=== PATIENT | male | born 1950 | race Caucasian/White ===

== ENCOUNTER 2016-12-25 22:26 | Inpatient (IN) | payer BC ==
--- NOTE | 2016-12-25 22:39 | PDOC ---
History of Present Illness - General Chief Complaint: Wound Infection Stated Complaint: INFECTED R 3RD TOW Time Seen by Provider: 12/25/16 22:39 - History of Present Illness Initial Comments: 12/25/16 23:22 This 66-year-old man with a history of DM, HTN presents with a few week history of progressive right third toe inflammation and infection. Patient states that "about a week ago" he noted swelling and redness around the right third toenail ( states that she noted blood on patient's sock at least 2 weeks ago). No known history of trauma. No previous history of diabetic foot ulcer. Patient states that swelling/purulent discharge/redness in his foot occurred in the last 2 days. No history of fever/chills or other systemic symptoms. He denies pain in the toe although the dorsal aspect of his foot is mildly uncomfortable. Patient states that is been compliant with his medications as prescribed. He occasionally tests his fingerstick blood sugar, most recently "a few days ago". At that time, according the patient, it was not elevated. Patient states that he did not pursue treatment of the ulcer because he was waiting until after his daughter's wedding(this coming Friday, December 28) No known history of resistant organism infection or colonization PMH HTN DM Subtalar dislocation, left foot (1 year) Right-sided pneumonia/pleural effusion [address] Montes Former smoker (quit 10 years ago) Meds Metformin Amlodipine Lisinopril Past History - Past Medical History Allergies/Adverse Reactions: Allergies Allergy/AdvReac Type Severity Reaction Status Date / Time No Known Allergies Allergy Unverified 07/06/12 09:57 Home Medications: Ambulatory Orders Cholecalciferol (Vitamin D3) [Vitamin D3] 1,000 unit PO DAILY tablet 10/07/14 Vitamin B Complex 1 each PO DAILY tablet 10/07/14 Zinc 50 mg PO DAILY tablet 10/07/14 Amox-Tr/K Cl [Augmentin - 875Mg Tablet] 1 tab PO BID #6 tablet 12/27/16 Diabetes: Yes HTN: Yes - Psycho/Social/Smoking Cessation Hx Anxiety: No Suicidal Ideation: No Smoking History: Unknown if ever smoked Have you smoked in the past 12 months: No Number of Cigarettes Smoked Daily: 0 Information on smoking cessation initiated: No Hx Alcohol Use: No Drug/Substance Use Hx: No Substance Use Type: None Review of Systems - Review of Systems Able to Perform ROS?: Yes Comments:: 12 point review of systems is negative except for what is noted in the history of present illness *Physical Exam - Vital Signs Last Vital Signs Temp Pulse Resp BP Pulse Ox 98.2 F 90 14 150/66 96 12/25/16 22:30 12/25/16 22:30 12/25/16 22:30 12/25/16 22:30 12/25/16 22:30 - Physical Exam Comments: GENERAL: Adult male, alert and oriented 3, in no acute distress HEAD: Normal with no signs of trauma. EYES: PERRLA, EOMI, sclera anicteric, conjunctiva clear. ENT: Ears normal, nares patent, oropharynx clear without exudates. Dry mucous membranes. NECK: Normal range of motion, supple without lymphadenopathy, JVD, or masses. LUNGS: Breath sounds equal, clear to auscultation bilaterally. No wheezes, and no crackles. HEART:Regular rate and rhythm, normal S1 and S2 without murmur, rub or gallop. ABDOMEN:.normal bowel sounds No guarding,tenderness or rebound.No masses No distention. EXTREMITIES: R lower extremitygangrenous third toe with necrotic tip; serosanguineous material from macerated dorsal surface cultured Moderate forefoot edema; mild tenderness of dorsal forefoot(no other tenderness/fluctuance) 8 cm wedge-shaped erythematous area from base of 3rd toe to the midfoot Faint lymphangitic streaking to proximal lower leg L lower extremityhalf centimeter diameter erythematous area dorsum of the hallux, nontender, nonfluctuant Remainder of the extremity exam is normal NEUROLOGICAL: Cranial nerves II through XII grossly intact. Normal speech. Moving all 4 extremities equally MUSCULOSKELETAL: Back non-tender to palpation, no CVA tenderness Portable chest x-ray: Preliminary interpretationno acute disease Right foot x-ray: Preliminary interpretationno gross evidence of fracture/ dislocation or osteomyelitis 12-lead electrocardiogram is performed: This shows normal sinus rhythm at 87 bpm. [place], intervals are normal. No evidence of acute ST or T-wave abnormalities. ED Treatment Course - LABORATORY CBC & Chemistry Diagram: 12/26/16 07:00 12/26/16 07:00 Progress Note - Progress Note Progress Note: This 66-year-old man with a history of diabetes and hypertension presents with a few week history of progressive right third toe infection. Exam reveals gangrenous toe and soft tissue infection of the foot. There is lymphangitic streaking in the lower leg. Patient has no fever on presentation and denies constitutional symptoms. After laboratory specimens drawn, patient given 4.5 grams Zosyn IV. Laboratory evaluation notable for white blood cell count of 15,800 with predominance of neutrophils. Marked hyperglycemia as resident with random glucose of 560 (covered with 8 units regular insulin SQ ). Creatinine is mildly elevated 1.4 with a creatinine clearance calculated at 50 Medical Decision Making - Medical Decision Making 12/26/16 01:09 Case discussed with [facility] service: Patient to be admitted , Dr. Cantrell's service *DC/Admit/Observation/Transfer Diagnosis at time of Disposition: Diabetic foot ulcer Qualifiers: Diabetic foot ulcer location: toe Diabetes mellitus type: type 2 Laterality: right Non-pressure ulcer stage: with necrosis of muscle Qualified Code(s): E11.621 - Type 2 diabetes mellitus with foot ulcer - Discharge Dispostion Condition at time of disposition: Guarded Admit: Yes - Prescriptions
[2016-12-25 23:36] LABS: INR 1.13 (0.82-1.09); PROTHROMBIN TIME (PATIENT) 12.6 SEC (10.2-13.0)
[2016-12-25 23:37] LABS: WHITE BLOOD COUNT 15.8 K/mm3 (4.0-10.8)
[2016-12-25 23:38] LABS: MCH 34.8 pg (25.7-33.7); MCHC 35.8 g/dl (32.0-35.9); MEAN CELL VOLUME 97.1 fl (80-96); MEAN PLT VOLUME 7.8 fl (7.5-11.1); PLATELET COUNT 321 K/MM3 (134-434); RDW 11.8 % (11.9-15.9)
[2016-12-25 23:41] LABS: ALBUMIN 3.4 g/dl (3.5-5.0); ALK PHOS 67 U/L (32-92); ANION GAP 11 (8-16); BILIRUBIN,TOTAL 1.1 mg/dl (0.2-1.0); CALCIUM 8.8 mg/dl (8.4-10.2); CO2 29 mmol/L (22-28); CREATININE 1.4 mg/dl (0.6-1.3); SGOT/AST 31 U/L (10-42); SGPT/ALT 11 U/L (10-40); TOT PROT 6.8 g/dl (6.4-8.3)
[2016-12-25 23:46] LABS: GLUCOSE,RANDOM 560 mg/dl (74-106)
[2016-12-25] MEDS ORDERED: PIPERACILLIN/TAZOB 4.5 GM 4.5 GM in DEXTROSE 5%-WATER - 100 ML IVPB ONE (23:54)
[2016-12-25 23:55] LABS: PLATELET ESTIMATE ADEQUATE (NORMAL)
[2016-12-25] MEDS ORDERED: PIPERACILLIN/TAZOBACTAM 4.5 GM VIAL IVPB ONE (23:59)
[2016-12-26] MEDS ORDERED: INSULIN REGULAR HUMAN 100 UNITS/ML *VIAL ONE
[2016-12-26] MEDS ORDERED: INSULIN REGULAR HUMAN 100 UNITS/ML *VIAL IVPUSH ONE (00:01)
[2016-12-26] MEDS ORDERED: INSULIN REGULAR HUMAN 100 UNITS/ML *VIAL SQ ONE (00:10)
[2016-12-26] MEDS ORDERED: SODIUM CHLORIDE 1,000 ML IV SCH ×2 (01:00→05:00)
[2016-12-26] MEDS ORDERED: SODIUM CHLORIDE 1,000 ML IV STA (01:10)
[2016-12-26 02:07] VITALS: BMI 23.5
[2016-12-26] MEDS ORDERED: INSULIN (NOVOLOG) ASPART 100 UNITS/ML 10ML VIAL SQ ONE (02:43)
[2016-12-26] MEDS ORDERED: INSULIN (NOVOLOG) ASPART 100 UNITS/ML 10ML VIAL ONE ×2 (02:48→06:05)
[2016-12-26] MEDS ORDERED: HEPARIN NA (PORCINE) 5,000 UNITS/ML 1ML VIAL SQ SCH (06:00)
[2016-12-26] MEDS: INSULIN SLIDING SCALE (NOVOLOG) 1 VIAL SQ SCH ×4 (06:33→21:57)
[2016-12-26 07:31] LABS: BASOPHIL 0.7 % (0-2.0); EOSINOPHIL 0.8 % (0-4.5); MCH 34.5 pg (25.7-33.7); MCHC 35.2 g/dl (32.0-35.9); MEAN CELL VOLUME 98.1 fl (80-96); MEAN PLT VOLUME 7.6 fl (7.5-11.1); NEUTROPHILS 77.8 % (42.8-82.8); PLATELET COUNT 299 K/MM3 (134-434); RDW 11.7 % (11.9-15.9); WHITE BLOOD COUNT 13.1 K/mm3 (4.0-10.8)
[2016-12-26 08:02] LABS: ANION GAP 6 (8-16); CALCIUM 8.2 mg/dl (8.4-10.2); CO2 29 mmol/L (22-28); CREATININE 0.9 mg/dl (0.6-1.3); GLUCOSE,RANDOM 122 mg/dl (74-106); MAGNESIUM 1.7 mg/dL (1.8-2.4); PHOSPHOROUS 2.7 mg/dl (2.5-4.6)
[2016-12-26] MEDS ORDERED: MAGNESIUM SULFATE 2 GM in SODIUM CHLORIDE 100 ML IVPB ONE (09:10)
--- NOTE | 2016-12-26 09:12 | HP ---
CHIEF COMPLAINT: right 3rd toe infection PCP: Dr Montes HISTORY OF PRESENT ILLNESS: patient is a 66 y/o male with a past medical history of hypertension and NIDDM. Patient reports foul order and swelling to the right 3rd toe for the past week. He denies any prior injury. Patient denies any fever. Patient does report compliance with all of his medications. ER course was notable for: (1) xray of right foot soft tissue swelling and air consistent with infection, linear density, 3mm overlying the posterior plantar surface, questionable foreign body (2) wbc 13.1 (3) esr 70 crp 15 Recent Travel: none PAST MEDICAL HISTORY: niddm, htn PAST SURGICAL HISTORY: tonsilectomy Social History: retired lives with Smoking: none Alcohol:social Drugs: none Family History: non contributory to this admission Allergies No Known Allergies Allergy (Unverified 07/06/12 09:57) HOME MEDICATIONS: Home Medications Medication Instructions Recorded Cholecalciferol (Vitamin D3) 1,000 unit PO DAILY tablet 10/07/14 [Vitamin D3] Vitamin B Complex 1 each PO DAILY tablet 10/07/14 Zinc 50 mg PO DAILY tablet 10/07/14 REVIEW OF SYSTEMS CONSTITUTIONAL: Absent: fever, chills, diaphoresis, generalized weakness, malaise, loss of appetite, weight change HEENT: Absent: rhinorrhea, nasal congestion, throat pain, throat swelling, difficulty swallowing, mouth swelling, ear pain, eye pain, visual changes CARDIOVASCULAR: Absent: chest pain, syncope, palpitations, irregular heart rate, lightheadedness , peripheral edema RESPIRATORY: Absent: cough, shortness of breath, dyspnea with exertion, orthopnea, wheezing, stridor, hemoptysis GASTROINTESTINAL: Absent: abdominal pain, abdominal distension, nausea, vomiting, diarrhea, constipation, melena, hematochezia GENITOURINARY: Absent: dysuria, frequency, urgency, hesitancy, hematuria, flank pain, genital pain MUSCULOSKELETAL: Present: toe swelling and discharge Absent: myalgia, arthralgia, joint swelling, back pain, neck pain SKIN: Absent: rash, itching, pallor HEMATOLOGIC/IMMUNOLOGIC: Absent: easy bleeding, easy bruising, lymphadenopathy, frequent infections ENDOCRINE: Absent: unexplained weight gain, unexplained weight loss, heat intolerance, cold intolerance NEUROLOGIC: Absent: headache, focal weakness or paresthesias, dizziness, unsteady gait, seizure, mental status changes, bladder or bowel incontinence PSYCHIATRIC: Absent: anxiety, depression, suicidal or homicidal ideation, hallucinations. PHYSICAL EXAMINATION Vital Signs - 24 hr 12/26/16 12/26/16 06:38 06:44 Temperature 98.5 F Pulse Rate 86 Respiratory 19 Rate Blood Pressure 130/61 O2 Sat by Pulse 96 Oximetry (%) GENERAL: Awake, alert, and fully oriented, in no acute distress. HEAD: Normal with no signs of trauma. EYES: Pupils equal, round and reactive to light, extraocular movements intact, sclera anicteric, conjunctiva clear. No lid lag. EARS, NOSE, THROAT: Ears normal, nares patent, oropharynx clear without exudates. Moist mucous membranes. NECK: Normal range of motion, supple without lymphadenopathy, JVD, or masses. LUNGS: Breath sounds equal, clear to auscultation bilaterally. No wheezes, and no crackles. No accessory muscle use. HEART: Regular rate and rhythm, normal S1 and S2 without murmur, rub or gallop. ABDOMEN: Soft, nontender, not distended, normoactive bowel sounds, no guarding, no rebound, no masses. No hepatomegaly or splenomegaly. MUSCULOSKELETAL: Normal range of motion at all joints. No bony deformities or tenderness. No CVA tenderness. UPPER EXTREMITIES: 2+ pulses, warm, well-perfused. No cyanosis. No clubbing. No peripheral edema. LOWER EXTREMITIES: 2+ pulses, warm, well-perfused. No calf tenderness. No peripheral edema. RIGHT LOWER EXTREMITY: gangrenous 3rd toe, necrotic tip, purulent foul smelling drainage, macerateted tissue of dorsal surface of toe, +2 foot edema, with 8 cm of erythema and lymphangitis. NEUROLOGICAL: Cranial nerves II-XII intact. Normal speech. Normal gait. PSYCHIATRIC: Cooperative. Good eye contact. Appropriate mood and affect. SKIN: Warm, dry, normal turgor, no rashes or lesions noted, normal capillary refill. Laboratory Results - last 24 hr 12/26/16 12/26/16 12/26/16 02:17 06:18 07:00 WBC 13.1 H RBC 4.13 Hgb 14.3 Hct 40.5 MCV 98.1 H MCH 34.5 H MCHC 35.2 RDW 11.7 L Plt Count 299 MPV 7.6 Neutrophils % 77.8 D Lymphocytes % 12.7 D Monocytes % 8.0 Eosinophils % 0.8 Basophils % 0.7 Sodium Potassium Chloride Carbon Dioxide Anion Gap BUN Creatinine POC Glucometer 330 111 Random Glucose Calcium Phosphorus Magnesium 12/26/16 07:00 WBC RBC Hgb Hct MCV MCH MCHC RDW Plt Count MPV Neutrophils % Lymphocytes % Monocytes % Eosinophils % Basophils % Sodium 131 L Potassium 3.1 L D Chloride 96 L D Carbon Dioxide 29 H Anion Gap 6 L BUN 14 Creatinine 0.9 D POC Glucometer Random Glucose 122 H D Calcium 8.2 L Phosphorus 2.7 Magnesium 1.7 L ASSESSMENT/PLAN: F/E/N - npo - replete mg and k - repeat bmp at 1800 ppx - hold Problem List - Problem (1) Gangrenous toe Assessment/Plan: - stat MRI ordered - upgrade antibiotics to vanc juan zosyn, appreciate ID input for abx clearence - case discussed with Dr Olvera for emergent surgical intervention, pt is pending OR today Code(s): I96 - GANGRENE, NOT ELSEWHERE CLASSIFIED (2) Diabetes Assessment/Plan: - pending hgb a1c - fingersticks achs, sliding scale regular insulin scale Code(s): E11.9 - TYPE 2 DIABETES MELLITUS WITHOUT COMPLICATIONS (3) Hypertension Assessment/Plan: - b/p at goal, continue norvasc Code(s): I10 - ESSENTIAL (PRIMARY) HYPERTENSION Visit type - Emergency Visit Emergency Visit: Yes ED Registration Date: 12/26/16 Care time: The patient presented to the Emergency Department on the above date and was hospitalized for further evaluation of their emergent condition. - New Patient This patient is new to me today: Yes Date on this admission: 12/26/16 - Critical Care Critical Care patient: No
[2016-12-26] MEDS ORDERED: PT OWN MED DRAWER 7, Y5N ONE (09:20)
[2016-12-26] MEDS: VITAMIN B COMPLEX W/C COMBO TABLET (FP) PO SCH (09:27)
[2016-12-26] MEDS: CHOLECALCIFEROL (VITAMIN D3) 1,000 UNIT TABLET (FP) PO SCH (09:27)
[2016-12-26] MEDS: amLODIPine BESYLATE 10 MG TABLET (FP) PO SCH (09:27)
[2016-12-26] MEDS: ZINC SULFATE 220 MG CAPSULE (FP) PO SCH (09:27)
[2016-12-26] MEDS ORDERED: POTASSIUM CHLORIDE TABS 20 MEQ TABLET.ER (FP) PO ONE (09:30)
[2016-12-26] MEDS: SODIUM CHLORIDE 0.9%/KCL 1,000 ML IV SCH (09:36)
[2016-12-26] MEDS ORDERED: MAGNESIUM SULF 50% (8.12 MEQ/2 ML-1 GM VIAL) IVPB ONE (09:45)
[2016-12-26] MEDS: PIPERACILLIN/TAZOB 3.375 GM 50 ML IVPB SCH ×2 (11:07→17:37)
[2016-12-26] MEDS ORDERED: VANCOMYCIN 1 GRAM (PRE-DOCKED) 250 ML IVPB ONE (11:30)
--- NOTE | 2016-12-26 13:07 | EKG ---
Test Reason : Blood Pressure : / mmHG Vent. Rate : 087 BPM Atrial Rate : 087 BPM P-R Int : 154 ms QRS Dur : 114 ms QT Int : 382 ms P-R-T Axes : 044 032 067 degrees QTc Int : 459 ms SINUS RHYTHM NON-SPECIFIC INTRA-VENTRICULAR CONDUCTION DELAY POSSIBLE ANTEROSEPTAL INFARCT , AGE UNDETERMINED NONSPECIFIC T WAVE ABNORMALITY ABNORMAL ECG NO PREVIOUS ECGS AVAILABLE Confirmed by JAIMEE CASTAÑEDA MD ([id number]) on 12/26/2016 1:07:32 PM Referred By: MD LANE Confirmed By:JAIMEE CASTAÑEDA MD
[2016-12-26] MEDS ORDERED: BUPIVACAINE HCL/PF 0.5% (5MG/ML) 10 ML VIAL ONE (16:55)
[2016-12-26] MEDS ORDERED: LIDOCAINE HCL 1%, 10 MG/ML (20ML VIAL) ONE (16:55)
[2016-12-26] MEDS ORDERED: DEXTROSE 5%-WATER - 50 ML IVPB ONE ×2 (17:22→22:03)
[2016-12-26] MEDS ORDERED: PIPERACILLIN/TAZOBACTAM 3.375 GM VIAL IVPB ONE ×2 (17:22→22:03)
[2016-12-26] MEDS: PIPERACILLIN/TAZOB 3.375 GM 3.375 GM in DEXTROSE 5%-WATER - 50 ML IVPB SCH (17:39)
--- NOTE | 2016-12-26 19:16 | CONSULT ---
Consult - text type - Consultation Consultation Note: Podiatry Consultation: 66 year old NIDDM M presents for admission for R 3rd toe ulcer and cellulitis. Patient reports developing infection for past 3 weeks duration that began as a hard callus. He developed increased malodor to the toe with associated redness/ swelling. Patient states that his blood sugars have been elevated over the past several days. He denies F/V/N/C/SOB/CP at home. He is currently afebrile with vital signs stable. A confounding issue I have learned after discussing with patient and his family members is that he plans to leave against medical advice on Friday to attend his daughter's wedding. PMHx: NIDDM, HLP, HTN Meds: noted in chart ALL: NKMA EDUARDO: R foot: pedal pulses 1/4, TG warm-warmer, CFT absent to 3rd toe. There is wet gangrene of the third toe with extensive malodor, purulent drainage, ascending cellulitis to the dorsal midfoot. There is faint ascending lymphangitis. There is no soft tissue crepitus evident. There is minimal tenderness to palpation. There is fluctuance throughout the entire toe. There is lifting of the nail unit with necrotic changes to the distal tuft of the toe. WBC: 13.1 ESR: 70 Blood Cx: pending Wound Cx: pending R foot XR: ST air 3rd digit, ST swelling R foot MRI: report pending Imp: 66 year old DM M with R 3rd toe wet gangrene and cellulitis I had a thorough discussion with the patient and his family members at bedside regarding his condition. I have strongly recommended the patient stay in the hospital through the weekend for intra-venous antibiotics, post-operative recovery and to assess bone cultures and pathology. The patient is adamant about leaving against medical advice in spite of my discussion to attend his daughter's wedding. I discussed risks of leaving against medical advice including worsening infection, spreading of infection to other parts of the foot , sepsis, loss of limb and even loss of life. I discussed risks of leaving against medical advice post-operatively which includes developing post- operative site infection, developing worsening infection and again loss of limb/ life. Clearly the most appropriate course of treatment is staying in the hospital during the course of admission. He plans to leave Friday. I recommend continuing intravenous antibiotics (?vanco/clinda) and Infectious Disease consultation. Hopefully, with intravenous antibiotics over the next 24 hours his condition improves. He plans to return to the emergency room on Friday to be readmitted and I will perform the amputation once the patient returns to the hospital. I advised patient and his family members to monitor closely for worsening signs/symptoms of infection. Thank you for the courtesy of this consultation. Anne-Marie Olvera DPM
[2016-12-27] MEDS: PIPERACILLIN/TAZOB 3.375 GM 3.375 GM in DEXTROSE 5%-WATER - 50 ML IVPB SCH ×3 (01:30→17:58)
[2016-12-27] MEDS: INSULIN SLIDING SCALE (NOVOLOG) 1 VIAL SQ SCH ×4 (06:04→22:07)
[2016-12-27] MEDS: SODIUM CHLORIDE 0.9%/KCL 1,000 ML IV SCH (09:45)
[2016-12-27] MEDS ORDERED: DEXTROSE 5%-WATER - 50 ML IVPB ONE ×2 (09:49→17:16)
[2016-12-27] MEDS ORDERED: PIPERACILLIN/TAZOBACTAM 3.375 GM VIAL IVPB ONE ×2 (09:49→17:15)
[2016-12-27] MEDS: ZINC SULFATE 220 MG CAPSULE (FP) PO SCH (10:08)
[2016-12-27] MEDS: amLODIPine BESYLATE 10 MG TABLET (FP) PO SCH (10:08)
[2016-12-27] MEDS: CHOLECALCIFEROL (VITAMIN D3) 1,000 UNIT TABLET (FP) PO SCH (10:08)
--- NOTE | 2016-12-27 10:39 | PN ---
Progress Note (short form) - Note Progress Note: ID Consult dictated Gangrene R 3rd toe Cellulitis R foot Possible sepsis secondary to foot infection Leukocytosis Uncontrolled DM Pending c/s empiric zosyn/ vancomycin Amputation
[2016-12-27] MEDS: VANCOMYCIN 1 GRAM (PRE-DOCKED) 250 ML IVPB SCH ×2 (11:05→22:11)
--- NOTE | 2016-12-27 11:21 | CONS ---
INFECTIOUS DISEASE CONSULTATION DATE OF CONSULTATION: DATE OF DICTATION: 12/27/2016 HISTORY OF PRESENT ILLNESS: The patient is a 66-year-old diabetic male who was evaluated for gangrenous right third toe. Patient states that he had developed an ingrown toenail and a hard callus on his right third toe. He was unaware that it had become increasingly swollen, erythematous, and with malodorous drainage. His noted over the past 2-3 days of increasing malodorous drainage from the toe. He presented for evaluation and was found to have wet gangrene of the right third toe. He was seen in consultation by Podiatry and was advised an amputation of that toe. He has no complaints of pain at the present time. He denies any associated fever or chills. His course was complicated by uncontrolled diabetes mellitus. He has had no recent hospital admissions. He denies history of serious soft tissue infection requiring hospitalization. PAST MEDICAL HISTORY: Positive for diabetes mellitus, hypertension. ALLERGIES: No known allergies. MEDICATIONS: Include Norvasc, NovoLog, multivitamins. SOCIAL HISTORY: He resides at home with his . He is a former smoker. SYSTEMS REVIEW: Neurologic: No loss of consciousness, seizure activity, focal weakness. Cardiac: Negative chest pain and palpitations. Respiratory: Negative cough or sputum production. Gastrointestinal: Negative vomiting or diarrhea. Genitourinary: Negative for urinary tract infection. LABORATORY DATA: White count 13.1, hematocrit 40.5, platelet count 299. BUN 14, creatinine 0.9. Sedimentation rate 70. C-reactive protein 15. Blood and wound cultures are pending. MRI of the foot shows osteomyelitis of the distal phalanx of the third digit. PHYSICAL EXAMINATION: General: He is awake and alert. He is not acutely toxic appearing. Vital Signs: Temperature 96.4; blood pressure 143/79; pulse 82, regular; respirations 20 per minute. HEENT: Sclerae are anicteric. Heart: Sounds S1, S2. Lungs: Clear. Abdomen: Soft. No tenderness elicited. No mass, rebound, or rigidity. Extremities: Negative for edema. Right Foot: There is wet gangrene involving the right third toe. The toe is swollen and necrotic with malodorous drainage. There is erythema extending to the dorsum of the right foot at the base of the toe. No lymphangitis. IMPRESSION: 1. Gangrene of the right third toe. 2. Cellulitis, right foot. 3. Possible sepsis secondary to foot infection. 4. Leukocytosis. 5. Uncontrolled diabetes mellitus. Pending cultures, empiric antibiotic coverage with Zosyn and vancomycin. Needs amputation of the right third toe. We will follow. Thank you for the kind referral. XIOMARA REYNAGA M.D. [id number]
--- NOTE | 2016-12-27 11:47 | PN ---
Progress Note (short form) - Note Progress Note: Subjective: The patient was seen and examined at the bedside, he has no complaints at this time. He states he will be leaving [facility] tomorrow. Current Medications Generic Name Dose Route Start Last Admin Trade Name Sandoval PRN Reason Stop Dose Admin Amlodipine Besylate 10 mg 12/26/16 10:00 12/27/16 10:08 Norvasc - PO 10 mg DAILY CAITLYN Administration Cholecalciferol 1,000 unit 12/26/16 10:00 12/27/16 10:08 Vitamin D3 - PO 1,000 unit DAILY CAITLYN Administration Potassium Chloride/Sodium Chloride 1,000 mls @ 75 mls/hr 12/26/16 09:30 09:45 Ns+20 Meq Kcl - IV Not Given ASDIR CAITLYN Piperacillin Sod/Tazobactam 50 mls @ 100 mls/hr 12/26/16 18:00 12/27/16 10:08 Sod 3.375 gm/ Dextrose IVPB 100 mls/hr Q8H-IV CAITLYN Administration Protocol Vancomycin HCl 250 mls @ 166.667 mls/hr 12/27/16 10:45 12/27/16 11:05 Vancomycin (Pre-Docked) IVPB 166.667 mls/hr Q12H CAITLYN Administration Insulin Aspart 1 vial 12/26/16 07:00 12/27/16 11:50 Novolog Vial Sliding Scale - SQ 4 units ACHS CAITLYN Administration Protocol Multivitamins 1 each 12/26/16 10:00 12/27/16 11:50 Total B With C - PO 1 each DAILY CAITLYN Administration Zinc Sulfate 220 mg 12/26/16 10:00 12/27/16 10:08 Orazinc - PO 220 mg DAILY CAITLYN Administration Objective: Vital Signs Period Temp Pulse Resp BP Sys/Anderson Pulse Ox Last 24 Hr 98.2 F-99.3 F 82-91 19-20 136-145/70-79 95-95 Physical Exam: General: NAD, A&Ox3 Lungs: CTA bilaterally Heart: RRR, S1S2 Abd: Soft, non-tender Ext: Right foot with dressing, c/d/i. 2+ DP/PT bilaterally Neuro: CN 2-12 intact CBCD WBC 13.1 K/mm3 (4.0-10.8) H 12/26/16 07:00 RBC 4.13 M/mm3 (4.00-5.60) 12/26/16 07:00 Hgb 14.3 GM/dl (11.7-16.9) 12/26/16 07:00 Hct 40.5 % (35.4-49) 12/26/16 07:00 MCV 98.1 fl (80-96) H 12/26/16 07:00 MCHC 35.2 g/dl (32.0-35.9) 12/26/16 07:00 RDW 11.7 % (11.9-15.9) L 12/26/16 07:00 Plt Count 299 K/MM3 (134-434) 12/26/16 07:00 MPV 7.6 fl (7.5-11.1) 12/26/16 07:00 CMP Sodium 131 mmol/L (136-145) L 12/26/16 07:00 Potassium 3.1 mmol/L (3.5-5.1) L D 12/26/16 07:00 Chloride 96 mmol/L (98-107) L D 12/26/16 07:00 Carbon Dioxide 29 mmol/L (22-28) H 12/26/16 07:00 Anion Gap 6 (8-16) L 12/26/16 07:00 BUN 14 mg/dl (7-18) 12/26/16 07:00 Creatinine 0.9 mg/dl (0.6-1.3) D 12/26/16 07:00 Creat Clearance w eGFR 50.86 (>60) 12/25/16 23:20 Random Glucose 122 mg/dl (74-106) H D 12/26/16 07:00 Calcium 8.2 mg/dl (8.4-10.2) L 12/26/16 07:00 Total Bilirubin 1.1 mg/dl (0.2-1.0) H D 12/25/16 23:20 AST 31 U/L (10-42) D 12/25/16 23:20 ALT 11 U/L (10-40) D 12/25/16 23:20 Alkaline Phosphatase 67 U/L (32-92) 12/25/16 23:20 Total Protein 6.8 g/dl (6.4-8.3) 12/25/16 23:20 Albumin 3.4 g/dl (3.5-5.0) L 12/25/16 23:20 Microbiology 12/25/16 23:20 Toe - Right Third Gram Stain - Final 12/25/16 23:20 Toe - Right Third Wound Culture - Preliminary Presumptive Mssa (Pbp2a Neg) Strep Agalactiae Group B Pending Organism Pending Organism#2 12/25/16 23:30 Blood - Peripheral Venous Blood Culture - Preliminary NO GROWTH OBTAINED AFTER 24 HOURS, INCUBATION TO CONTINUE FOR 4 DAYS. 12/25/16 23:30 Blood - Peripheral Venous Blood Culture - Preliminary NO GROWTH OBTAINED AFTER 24 HOURS, INCUBATION TO CONTINUE FOR 4 DAYS. Assessment: This is a 66 year old male with PMHx of NIDDM, HTN, who presented to the ED with right foot swelling and drainage/foul odor from right foot 3rd digit. Plan: 1) ID: Right foot cellulitis, right foot 3rd digit gangrene and osteomyelitis - Continue IV Vancomycin and Zosyn - Patient is leaving [facility] tomorrow for his daughter's wedding. Discussed with Dr. Paz, will give Augmentin x2 days. The patient states he will return to the hospital on Friday afternoon for treatment - Appreciate podiatry consult - Appreciate ID consult 2) Endocrine: NIDDM - BGM ACHS - ISS ACHS 3) Cardiology: HTN - Continue Norvasc 4) F/E/N: - Diabetic diet/sodium controlled - Monitor electrolytes 5) Prophylaxis: - Heparin 5,000u sq tid - OOB ambulating 6) Dispo: - Requires continued inpatient care CODE STATUS: FULL CODE Visit type - Emergency Visit Emergency Visit: Yes ED Registration Date: 12/26/16 Care time: The patient presented to the Emergency Department on the above date and was hospitalized for further evaluation of their emergent condition. - New Patient This patient is new to me today: Yes Date on this admission: 12/27/16 - Critical Care Critical Care patient: No
[2016-12-27] MEDS: VITAMIN B COMPLEX W/C COMBO TABLET (FP) PO SCH (11:50)
[2016-12-27] MEDS: HEPARIN NA (PORCINE) 5,000 UNITS/ML 1ML VIAL SQ SCH ×2 (15:03→22:11)
[2016-12-28] MEDS ORDERED: DEXTROSE 5%-WATER - 50 ML IVPB ONE ×2 (02:46→08:33)
[2016-12-28] MEDS ORDERED: PIPERACILLIN/TAZOBACTAM 3.375 GM VIAL IVPB ONE ×2 (02:46→08:33)
[2016-12-28] MEDS: PIPERACILLIN/TAZOB 3.375 GM 3.375 GM in DEXTROSE 5%-WATER - 50 ML IVPB SCH ×2 (02:55→09:45)
[2016-12-28] MEDS: INSULIN SLIDING SCALE (NOVOLOG) 1 VIAL SQ SCH (06:17)
[2016-12-28] MEDS: HEPARIN NA (PORCINE) 5,000 UNITS/ML 1ML VIAL SQ SCH (06:18)
[2016-12-28 07:41] LABS: BASOPHIL 0.8 % (0-2.0); EOSINOPHIL 2.7 % (0-4.5); MCH 34.1 pg (25.7-33.7); MCHC 34.3 g/dl (32.0-35.9); MEAN CELL VOLUME 99.1 fl (80-96); MEAN PLT VOLUME 7.8 fl (7.5-11.1); NEUTROPHILS 69.2 % (42.8-82.8); PLATELET COUNT 338 K/MM3 (134-434); RDW 12.4 % (11.9-15.9); WHITE BLOOD COUNT 8.9 K/mm3 (4.0-10.0)
[2016-12-28 07:57] LABS: ALBUMIN 3.1 g/dl (3.4-5.0); ANION GAP 15 (8-16); CALCIUM 9.1 mg/dL (8.5-10.1); CO2 25 mmol/L (21-32); CREATININE 0.8 mg/dL (0.7-1.3); GLUCOSE,RANDOM 254 mg/dL (74-106); SGOT/AST 11 U/L (15-37)
[2016-12-28 07:58] LABS: ALK PHOS 63 U/L (45-117); BILIRUBIN,TOTAL 0.7 mg/dL (0.2-1.0); SGPT/ALT 12 U/L (12-78); TOT PROT 6.8 g/dl (6.4-8.2)
--- NOTE | 2016-12-28 08:08 | DS ---
Physical Examination Vital Signs: Vital Signs Temperature 97.8 F 12/28/16 07:14 Pulse Rate 84 12/28/16 07:14 Respiratory Rate 20 12/28/16 07:14 Blood Pressure 162/64 12/28/16 07:14 O2 Sat by Pulse Oximetry (%) 95 12/27/16 21:00 Labs: CBC, BMP 12/28/16 06:30 Discharge Summary Reason For Visit: DIABETIC FOOT ULCER Current Active Problems Diabetes (Acute) Diabetic foot ulcer (Acute) Gangrenous toe (Acute) Hypertension (Acute) Hospital Course: AMA Condition: Guarded - Instructions Referrals: Jorge L Montes MD [Primary Care Provider] - Disposition: AGAINST MEDICAL ADVICE - Home Medications Comprehensive Discharge Medication List: Ambulatory Orders Cholecalciferol (Vitamin D3) [Vitamin D3] 1,000 unit PO DAILY tablet 10/07/14 Vitamin B Complex 1 each PO DAILY tablet 10/07/14 Zinc 50 mg PO DAILY tablet 10/07/14 Amox-Tr/K Cl [Augmentin - 875Mg Tablet] 1 tab PO BID #6 tablet 12/27/16
[2016-12-28] MEDS ORDERED: PT OWN MED DRAWER 7, Y5N ONE (08:33)
[2016-12-28] MEDS: VANCOMYCIN 1 GRAM (PRE-DOCKED) 250 ML IVPB SCH ×2 (08:36→10:05)
[2016-12-28] MEDS: ZINC SULFATE 220 MG CAPSULE (FP) PO SCH (09:27)
[2016-12-28] MEDS: VITAMIN B COMPLEX W/C COMBO TABLET (FP) PO SCH (09:28)
[2016-12-28] MEDS: amLODIPine BESYLATE 10 MG TABLET (FP) PO SCH (09:28)
[2016-12-28] MEDS: CHOLECALCIFEROL (VITAMIN D3) 1,000 UNIT TABLET (FP) PO SCH (09:28)
[2016-12-28 09:33] VITALS: BP 147/81; PULSE 81; TEMP 98
== END 2016-12-28 10:41 | disposition left against medical advice (07) | DRG 638 ==
LOC: FER 22:26 → FM/S 12-26 00:49 → J8W 12-26 15:55
PROVIDERS: ADMIT Internal Medicine; ATTEND Registered Nurse
DX: E11.69 Type 2 diabetes mellitus with other specified complication (principal); M86.8X7 Other osteomyelitis, ankle and foot; E11.52 Type 2 diabetes mellitus with diabetic peripheral angiopathy with gangrene; E11.65 Type 2 diabetes mellitus with hyperglycemia; I10 Essential (primary) hypertension; L97.519 Non-pressure chronic ulcer of other part of right foot with unspecified severity; E11.621 Type 2 diabetes mellitus with foot ulcer; E11.628 Type 2 diabetes mellitus with other skin complications; L03.031 Cellulitis of right toe; D72.828 Other elevated white blood cell count; Z79.84 Long term (current) use of oral hypoglycemic drugs
CPT/HCPCS: 36415; 71010-TC; 73630-TC-RT; 73718-TC; 80048; 80053; 83036; 83605; 83735; 84100; 84443; 85025; 85610; 85651; 86140; 87040; 87070; 87186; 87205; 93005; 99283-25; J1644

== ENCOUNTER 2016-12-29 17:45 | Inpatient (IN) | payer BC ==
[2016-12-29] MEDS ORDERED: PIPERACILLIN/TAZOB 3.375 GM/50 ML PRE-DOCKED IV ONE (18:25)
--- NOTE | 2016-12-29 18:29 | PDOC ---
History of Present Illness <Alberto Medellin - Last Filed: 12/29/16 18:33> - General History Source: Patient Exam Limitations: No Limitations - History of Present Illness Initial Comments: 12/29/16 18:47 Patient is a 66 year old male with a significant past medical history of Diabetes, hypertension and NIDDM who presents to the ED s/p Gangrenous 3rd toe on right foot last week. Patient reports getting a cut on his 3rd toe last week which became infection. He reports his 3rd toe became red, followed by bloody and pus filled. He reports his toe becoming gangrenous after about 9 days prior to getting the initial cut on toe. Physician notes states patient signed himself out to dance at his daughter's wedding. Patient states he is signing himself in to have his 3rd toe amputated. Denies fever, chills. Denies chest pain, SOB. Denies nausea, vomiting. Denies any other symptoms Allergies: None Social history: No smoking. No alcohol. No drugs. Surgical history: tonsillectomy PMD: Dr. Montes Other providers: Dr. Ernesto Paz. Dr. Bethel Olvera <Timo Espinoza - Last Filed: 12/29/16 18:48> - General Chief Complaint: Wound Stated Complaint: admission Time Seen by Provider: 12/29/16 17:58 Past History - Past Medical History Anemia: No Asthma: No Cancer: No Cardiac Disorders: No CVA: No COPD: No CHF: No Dementia: No Diabetes: Yes GI Disorders: No Disorders: No HTN: Yes Hypercholesterolemia: No Liver Disease: No Seizures: No Thyroid Disease: No - Psycho/Social/Smoking Cessation Hx Anxiety: No Suicidal Ideation: No Smoking History: Former smoker Have you smoked in the past 12 months: No Number of Cigarettes Smoked Daily: 0 Information on smoking cessation initiated: No Hx Alcohol Use: No Drug/Substance Use Hx: No Substance Use Type: None Hx Substance Use Treatment: No <Alberto Medellin - Last Filed: 12/29/16 18:33> <Timo Espinoza - Last Filed: 12/29/16 18:48> - Past Medical History Allergies/Adverse Reactions: Allergies Allergy/AdvReac Type Severity Reaction Status Date / Time No Known Allergies Allergy Unverified 12/29/16 17:48 Home Medications: Ambulatory Orders Cholecalciferol (Vitamin D3) [Vitamin D3] 1,000 unit PO DAILY tablet 10/07/14 Vitamin B Complex 1 each PO DAILY tablet 10/07/14 Zinc 50 mg PO DAILY tablet 10/07/14 Amox-Tr/K Cl [Augmentin - 875Mg Tablet] 1 tab PO BID #6 tablet 12/27/16 Review of Systems - Review of Systems Able to Perform ROS?: Yes Comments:: 12/29/16 18:47 GENERAL/CONSTITUTIONAL: No fever or chills. No weakness. HEAD, EYES, EARS, NOSE AND THROAT: No change in vision. No ear pain or discharge. No sore throat. CARDIOVASCULAR: No chest pain or shortness of breath. RESPIRATORY: No cough, wheezing, or hemoptysis. GASTROINTESTINAL: No nausea, vomiting, diarrhea or constipation. GENITOURINARY: No dysuria, frequency, or change in urination. MUSCULOSKELETAL: + RIght 3rd toe pain. No joint or muscle swelling or pain. No neck or back pain. SKIN: No rash NEUROLOGIC: No headache, vertigo, loss of consciousness, or change in strength/ sensation. ENDOCRINE: No increased thirst. No abnormal weight change. HEMATOLOGIC/LYMPHATIC: No anemia, easy bleeding, or history of blood clots. ALLERGIC/IMMUNOLOGIC: No hives or skin allergy. All Other Systems: Reviewed and Negative <Timo Espinoza - Last Filed: 12/29/16 18:48> *Physical Exam - Vital Signs Last Vital Signs Temp Pulse Resp BP Pulse Ox 98.4 F 87 18 154/91 100 12/29/16 17:50 12/29/16 17:50 12/29/16 17:50 12/29/16 17:50 12/29/16 17:50 <Alberto Medellin - Last Filed: 12/29/16 18:33> - Vital Signs Last Vital Signs Temp Pulse Resp BP Pulse Ox 98.4 F 87 18 154/91 100 12/29/16 17:50 12/29/16 17:50 12/29/16 17:50 12/29/16 17:50 12/29/16 17:50 - Physical Exam Comments: 12/29/16 18:47 GENERAL: Awake, alert, and fully oriented, in no acute distress HEAD: No signs of trauma EYES: PERRLA, EOMI, sclera anicteric, conjunctiva clear ENT: Auricles normal inspection, hearing grossly normal, nares patent, oropharynx clear without exudates. Moist mucosa NECK: Normal ROM, supple, no lymphadenopathy, JVD, or masses LUNGS: Breath sounds equal, clear to auscultation bilaterally. No wheezes, and no crackles HEART: Regular rate and rhythm, normal S1 and S2, no murmurs, rubs or gallops ABDOMEN: Soft, nontender, normoactive bowel sounds. No guarding, no rebound. No masses EXTREMITIES: +Gangrenous right 3rd toe. Normal range of motion, no edema. No clubbing or cyanosis. No cords, erythema, or tenderness NEUROLOGICAL: Cranial nerves II through XII grossly intact. Normal speech, normal gait SKIN: Warm, Dry, normal turgor, no rashes or lesions noted. <Timo Espinoza - Last Filed: 12/29/16 18:48> ED Treatment Course - RADIOLOGY Radiology Studies Ordered: Category Date Time Status CHEST X-RAY PORTABLE* [RAD] Stat Radiology 12/29/16 18:16 Ordered <Alberto Medellin - Last Filed: 12/29/16 18:33> *DC/Admit/Observation/Transfer - Discharge Dispostion Admit: Yes <Alberto Medellin - Last Filed: 12/29/16 18:33> - Attestations Scribe Attestion: 12/29/16 18:48 Documentation prepared by Timo Espinoza, acting as medical manager for Alberto Medellin MD/DO. <Timo Espinoza - Last Filed: 12/29/16 18:48> Diagnosis at time of Disposition: Gangrene Cellulitis Qualifiers: Site of cellulitis of extremity: lower extremity Laterality: right - Discharge Dispostion Condition at time of disposition: Unchanged/Unknown - Referrals Referrals: Jorge L Montes MD [Primary Care Provider] -
[2016-12-29] MEDS ORDERED: VANCOMYCIN 1 GRAM (PRE-DOCKED) 250 ML IVPB ONE (18:39)
[2016-12-29] MEDS ORDERED: PIPERACILLIN/TAZOB 3.375 GM 50 ML IVPB ONE (18:40)
[2016-12-29 18:53] LABS: EOSINOPHIL 2.2 % (0-4.5); MCH 34.6 pg (25.7-33.7); MCHC 34.7 g/dl (32.0-35.9); MEAN CELL VOLUME 99.9 fl (80-96); MEAN PLT VOLUME 7.8 fl (7.5-11.1); NEUTROPHILS 64.8 % (42.8-82.8); PLATELET COUNT 369 K/MM3 (134-434); RDW 12.7 % (11.9-15.9); WHITE BLOOD COUNT 9.6 K/mm3 (4.0-10.0)
[2016-12-29 19:06] LABS: INR 1.09 (0.82-1.09)
[2016-12-29 19:08] LABS: ACTIVATED PTT 31.4 SECONDS (26.9-34.4)
--- NOTE | 2016-12-29 19:14 | PN ---
Teaching Attending Note Name of Resident: Macarena Huber ATTENDING PHYSICIAN STATEMENT I saw and evaluated the patient. I reviewed the resident's note and discussed the case with the resident. I agree with the resident's findings and plan as documented. SUBJECTIVE: 66 yo F HTN, NIDDM, who was recently admitted for with R. Foot Cellulitis and was treated with Vanco/Zosyn. Pt. had left AMA to dance at his daughters wedding and was sent home on Augmentin X2 days. OBJECTIVE: Physical: VS: Vital Signs Period Temp Pulse Resp BP Sys/Anderson Pulse Ox Last 24 Hr 98.4 F 87 18 154/91 100 GEN: NAD, Resting in bed HEENT: NCAT, PERRL, Throat without erythema or exudates CARD: RRR S1, S2 RESP: CTAB ABD: BSx4, NTD to palpation EXT: R. 3rd toe gangrene, pulses intact bilaterally, no edema bilateral calves. CBCD WBC 9.6 K/mm3 (4.0-10.0) 12/29/16 18:30 RBC 4.34 M/mm3 (4.00-5.60) 12/29/16 18:30 Hgb 15.0 GM/dL (11.7-16.9) 12/29/16 18:30 Hct 43.4 % (35.4-49) 12/29/16 18:30 MCV 99.9 fl (80-96) H 12/29/16 18:30 MCHC 34.7 g/dl (32.0-35.9) 12/29/16 18:30 RDW 12.7 % (11.9-15.9) 12/29/16 18:30 Plt Count 369 K/MM3 (134-434) 12/29/16 18:30 MPV 7.8 fl (7.5-11.1) 12/29/16 18:30 CMP Sodium 134 mmol/L (136-145) L 12/29/16 18:30 Potassium 4.3 mmol/L (3.5-5.1) 12/29/16 18:30 Chloride 99 mmol/L (98-107) 12/29/16 18:30 Carbon Dioxide 28 mmol/L (21-32) 12/29/16 18:30 Anion Gap 7 (8-16) L 12/29/16 18:30 BUN 27 mg/dL (7-18) H D 12/29/16 18:30 Creatinine 1.2 mg/dL (0.7-1.3) D 12/29/16 18:30 Creat Clearance w eGFR > 60 (>60) 12/29/16 18:30 Random Glucose 388 mg/dL (74-106) H* D 12/29/16 18:30 Calcium 9.3 mg/dL (8.5-10.1) 12/29/16 18:30 Total Bilirubin 0.4 mg/dL (0.2-1.0) D 12/29/16 18:30 AST 34 U/L (15-37) D 12/29/16 18:30 ALT 27 U/L (12-78) D 12/29/16 18:30 Alkaline Phosphatase 70 U/L (45-117) 12/29/16 18:30 Total Protein 7.3 g/dl (6.4-8.2) 12/29/16 18:30 Albumin 3.1 g/dl (3.4-5.0) L 12/29/16 18:30 CARDIAC ENZYMES Creatine Kinase 80 IU/L (39-308) 12/29/16 18:30 Troponin I < 0.02 ng/ml (0.00-0.05) 12/29/16 18:30 ASSESSMENT AND PLAN: 66 yo M with Pmhx NIDDM, HTN, who presents with R. Foot Cellulitis 1.) R. Foot Cellulitis - C/W vanco/Zosyn - ID on Consult - Pod following 2.) NIDDM - RAISS - FS 3.) HTN - Norvasc 4.) DVt Ppx - Heparin 5000 q 8
[2016-12-29 19:18] LABS: ALBUMIN 3.1 g/dl (3.4-5.0); ANION GAP 7 (8-16); BILIRUBIN,TOTAL 0.4 mg/dL (0.2-1.0); CALCIUM 9.3 mg/dL (8.5-10.1); CO2 28 mmol/L (21-32); CREATININE 1.2 mg/dL (0.7-1.3); SGOT/AST 34 U/L (15-37); SGPT/ALT 27 U/L (12-78); TOT PROT 7.3 g/dl (6.4-8.2)
[2016-12-29 19:21] LABS: ALK PHOS 70 U/L (45-117); CPK 80 IU/L (39-308); TROPONIN I < 0.02 ng/ml (0.00-0.05)
[2016-12-29 19:23] LABS: GLUCOSE,RANDOM 388 mg/dL (74-106)
[2016-12-29] MEDS ORDERED: SODIUM CHLORIDE 1,000 ML IV STA (19:24)
--- NOTE | 2016-12-29 21:06 | HP ---
CHIEF COMPLAINT: R third toe gangrene PCP: Dr. Montes HISTORY OF PRESENT ILLNESS: Mr. Lovett is a 66yo M w/ PMHx of NIDDM who was previously admitted 3 days ago and treated for osteomyelitis of his R third toe, but left AMA for his daughter' s wedding and promised to return today. He had MRI of R foot, was treated with IV Vanc/Zosyn, and seen by ID and Podiatry. He was informed by Dr Olvera about the plan to amputate once the patient returned to hospital. Prior to leaving, he was given PO Augmentin for 2 days, and had his foot wrapped. Since leaving, he denies signs of systemic infection, no fevers, chills, malaise. He has no tenderness in the area. He is unsure of any inciting trauma to the area. He endorsed compliance w/ his Metformin and Fingerstick checks. ER course was notable for: (1) Vanc/Zosyn (2) Labs - no WBC count (3) New set of blood cultures (4) EKG - NSR w/o T wave or ST changes, QTc 447 Recent Travel: Denies PAST MEDICAL HISTORY: NIDDM, HTN PAST SURGICAL HISTORY: Tonsillectomy, chest tube insertion for pleurisy Social History: Retired, lives w/ Smoking: Prior smoker, around 10-15pack year hx Alcohol: Denies Drugs: Denies Family History: Noncontributory Allergies: No Known Allergies Allergy (Unverified 12/29/16 17:48) HOME MEDICATIONS: Home Medications Medication Instructions Recorded Cholecalciferol (Vitamin D3) 1,000 unit PO DAILY tablet 10/07/14 [Vitamin D3] Vitamin B Complex 1 each PO DAILY tablet 10/07/14 Zinc 50 mg PO DAILY tablet 10/07/14 Add'l home meds: Metformin 1,000mg QD + Norvasc 10mg QD REVIEW OF SYSTEMS CONSTITUTIONAL: Absent: fever, chills, diaphoresis, generalized weakness, malaise, loss of appetite, weight change HEENT: Absent: rhinorrhea, nasal congestion, throat pain, throat swelling, difficulty swallowing, mouth swelling, ear pain, eye pain, visual changes CARDIOVASCULAR: Absent: chest pain, syncope, palpitations, irregular heart rate, lightheadedness , peripheral edema RESPIRATORY: Absent: cough, shortness of breath, dyspnea with exertion, orthopnea, wheezing, stridor, hemoptysis GASTROINTESTINAL: Absent: abdominal pain, abdominal distension, nausea, vomiting, diarrhea, constipation, melena, hematochezia GENITOURINARY: Absent: dysuria, frequency, urgency, hesitancy, hematuria, flank pain, genital pain MUSCULOSKELETAL: Absent: myalgia, arthralgia, joint swelling, back pain, neck pain SKIN: Absent: rash, itching, pallor Present: discoloration and drainage of R third toe HEMATOLOGIC/IMMUNOLOGIC: Absent: easy bleeding, easy bruising, lymphadenopathy, frequent infections ENDOCRINE: Absent: unexplained weight gain, unexplained weight loss, heat intolerance, cold intolerance NEUROLOGIC: Absent: headache, focal weakness or paresthesias, dizziness, unsteady gait, seizure, mental status changes, bladder or bowel incontinence PSYCHIATRIC: Absent: anxiety, depression, suicidal or homicidal ideation, hallucinations. PHYSICAL EXAMINATION GEN: AAOx3, NAD, Not in any pain, not ill-appearing HEENT: PERRLA, EOMi, No cervical LAD CV: S1, S2, RRR LUNG: CTABL ABD: Soft, NT, ND, Normoactive BS MSK: R 3rd digit - Wet gangrene, malodorous, yellow discolored phalanx, with distal necrotic tip, purulent drainage w/ blood, mild ascending cellulitis, no crepitus, no TTP, 1+ DP pulse L foot - No ulcers, 1+ DP pulse NEURO: CN 2-12 intact, sensation deficits in feet bilaterally, MSK 5/5 Laboratory Last Values WBC 9.6 K/mm3 (4.0-10.0) 12/29/16 18:30 RBC 4.34 M/mm3 (4.00-5.60) 12/29/16 18:30 Hgb 15.0 GM/dL (11.7-16.9) 12/29/16 18:30 Hct 43.4 % (35.4-49) 12/29/16 18:30 MCV 99.9 fl (80-96) H 12/29/16 18:30 MCH 34.6 pg (25.7-33.7) H 12/29/16 18:30 MCHC 34.7 g/dl (32.0-35.9) 12/29/16 18:30 RDW 12.7 % (11.9-15.9) 12/29/16 18:30 Plt Count 369 K/MM3 (134-434) 12/29/16 18:30 MPV 7.8 fl (7.5-11.1) 12/29/16 18:30 Neutrophils % 64.8 % (42.8-82.8) 12/29/16 18:30 Lymphocytes % 21.2 % (8-40) D 12/29/16 18:30 Monocytes % 10.8 % (3.8-10.2) H 12/29/16 18:30 Eosinophils % 2.2 % (0-4.5) 12/29/16 18:30 Basophils % 1.0 % (0-2.0) 12/29/16 18:30 PT with INR 12.00 SEC (9.98-11.88) H 12/29/16 18:30 INR 1.09 (0.82-1.09) 12/29/16 18:30 PTT (Actin FS) 31.4 SECONDS (26.9-34.4) 12/29/16 18:30 Sodium 134 mmol/L (136-145) L 12/29/16 18:30 Potassium 4.3 mmol/L (3.5-5.1) 12/29/16 18:30 Chloride 99 mmol/L (98-107) 12/29/16 18:30 Carbon Dioxide 28 mmol/L (21-32) 12/29/16 18:30 Anion Gap 7 (8-16) L 12/29/16 18:30 BUN 27 mg/dL (7-18) H D 12/29/16 18:30 Creatinine 1.2 mg/dL (0.7-1.3) D 12/29/16 18:30 Creat Clearance w eGFR > 60 (>60) 12/29/16 18:30 Random Glucose 388 mg/dL (74-106) H* D 12/29/16 18:30 Lactic Acid 1.2 mmol/L (0.4-2.0) 12/29/16 18:30 Calcium 9.3 mg/dL (8.5-10.1) 12/29/16 18:30 Total Bilirubin 0.4 mg/dL (0.2-1.0) D 12/29/16 18:30 AST 34 U/L (15-37) D 12/29/16 18:30 ALT 27 U/L (12-78) D 12/29/16 18:30 Alkaline Phosphatase 70 U/L (45-117) 12/29/16 18:30 Creatine Kinase 80 IU/L (39-308) 12/29/16 18:30 Troponin I < 0.02 ng/ml (0.00-0.05) 12/29/16 18:30 Total Protein 7.3 g/dl (6.4-8.2) 12/29/16 18:30 Albumin 3.1 g/dl (3.4-5.0) L 12/29/16 18:30 Blood Type A POSITIVE 12/29/16 18:30 Antibody Screen Negative 12/29/16 18:30 Laboratory Tests 12/25/16 12/25/16 12/26/16 23:20 23:20 07:00 ESR 70 H Hemoglobin A1c % 8.6 H D C-Reactive Protein 15.0 H D Home Medication List Medication Instructions Recorded Confirmed Type Cholecalciferol (Vitamin D3) 1,000 unit PO DAILY tablet 10/07/14 12/29/16 History [Vitamin D3] Vitamin B Complex 1 each PO DAILY tablet 10/07/14 12/29/16 History Zinc 50 mg PO DAILY tablet 10/07/14 12/29/16 History Active Medications Generic Name Dose Route Start Last Admin Trade Name Sandoval PRN Reason Stop Dose Admin Amlodipine Besylate 10 mg 12/30/16 10:00 Norvasc - PO DAILY CAITLYN Heparin Sodium (Porcine) 5,000 unit 12/29/16 22:00 12/29/16 22:56 Heparin - SQ 5,000 unit TID CAITLYN Administration Vancomycin HCl 1,000 mg/ 250 mls @ 250 mls/hr 12/29/16 22:00 12/29/16 22:58 Dextrose IVPB Not Given BID CAITLYN Protocol Sodium Chloride 1,000 mls @ 83 mls/hr 12/30/16 01:00 Normal Saline - IV ASDIR CAITLYN Insulin Aspart 1 vial 12/29/16 22:00 12/29/16 22:57 Novolog Vial Sliding Scale - SQ 8 units ACHS CAITLYN Administration Protocol IMAGING: MRI of R foot - Osteomyelitis involving distal phalanx of R 3rd digit. Assoc soft tissue edema is seen as well as soft tissue air/gas accumulation. CXR - No acute CP pathology (read by me) - pending official read ASSESSMENT/PLAN: Pt is a 66yo M w/ PMHx of NIDDM who is being readmitted for treatment of R 3rd toe osteomyelitis. # Osteomyelitis of R 3rd toe - w/ wet gangrene, secondary to DM2 - Continue IV Vancomycin 1g BID - Received IV Zosyn 3.375gm x1 in ER, ID to continue - Prior Wound Cx done (+S.aureus, +GBS, +Enterococcus) - F/u Blood Cx, UA, UCx - Trend ESR, CRP - Dr. Olvera (podiatry) consulted for amputation - ID consulted - Coags done, NPO after midnight - IVNS gentle # NIDDM - Hold home metformin - BGM + SSI ACHS # HTN - Continue home Norvasc 10mg QD # FEN - Fluids: IVNS @ 83cc/hr - Electrolytes: Mild hyponatremia, continue to monitor - Nutrition: NPO after midnight # Prophylaxis - DVT: Heparin SQ TID, 6am held - GI: Not indicated - Deconditioning: PT not needed, patient is ambulatory # Dispo - Admit to Med/Surg Case d/w Dr. Melvin + Dr. Cecile Riojas MD - PGY1 Internal Medicine Visit type - Emergency Visit Emergency Visit: Yes ED Registration Date: 12/29/16 Care time: The patient presented to the Emergency Department on the above date and was hospitalized for further evaluation of their emergent condition. - New Patient This patient is new to me today: Yes Date on this admission: 01/03/17 - Critical Care Critical Care patient: No
[2016-12-29] MEDS ORDERED: INSULIN (NOVOLOG) ASPART 100 UNITS/ML 10ML VIAL ONE (22:34)
--- NOTE | 2016-12-29 22:40 | HP ---
CHIEF COMPLAINT: " Pain in the right third toe" PCP: Dr. Montes HISTORY OF PRESENT ILLNESS: Patient is a 66 year old Male with significant past medical history of Diabetes Mellitus and Hypertension presented to the ED with the chief complaints of right great toe. As per the chart, patient was admitted on 12/26/16 for Osteomyelitis of the distal right third toe confirmed by MRI, was treated with IV Vancomyicn and Zosyn, was seen by Dr. Paz and Dr. Olvera, plan was to amputate the toe. However, patient left AMA to attend his daughters wedding and came back today for further evaluation and treatment. Denies fever, chills, rigors, sweating, chest pain, sob, cough, palpitation, abdominal pain, nausea or vomiting. Bowel/Bladder habit normal. Sleep/Appetite normal. ER course was notable for: (1) Afebrile, hemodynamically stable, Normal WBC (2) EKG: Normal sinus rhythm, no significant ST or T wave changes (3) IV Vanc/Zosyn Recent Travel: None PAST MEDICAL HISTORY: Diabetes Mellitus and Hypertension PAST SURGICAL HISTORY: Tonsillectomy, chest tube insertion for pleurisy Social History: Smoking: Former smoker, 10-15 pack year Alcohol: Denies Drugs: Denies Family History: Unknown Allergies No Known Allergies Allergy (Unverified 12/29/16 17:48) HOME MEDICATIONS: Home Medications Medication Instructions Recorded Cholecalciferol (Vitamin D3) 1,000 unit PO DAILY tablet 10/07/14 [Vitamin D3] Vitamin B Complex 1 each PO DAILY tablet 10/07/14 Zinc 50 mg PO DAILY tablet 10/07/14 REVIEW OF SYSTEMS CONSTITUTIONAL: Absent: fever, chills, diaphoresis, generalized weakness, malaise, loss of appetite, weight change HEENT: Absent: rhinorrhea, nasal congestion, throat pain, throat swelling, difficulty swallowing, mouth swelling, ear pain, eye pain, visual changes CARDIOVASCULAR: Absent: chest pain, syncope, palpitations, irregular heart rate, lightheadedness , peripheral edema RESPIRATORY: Absent: cough, shortness of breath, dyspnea with exertion, orthopnea, wheezing, stridor, hemoptysis GASTROINTESTINAL: Absent: abdominal pain, abdominal distension, nausea, vomiting, diarrhea, constipation, melena, hematochezia GENITOURINARY: Absent: dysuria, frequency, urgency, hesitancy, hematuria, flank pain, genital pain MUSCULOSKELETAL: Absent: myalgia, arthralgia, joint swelling, back pain, neck pain SKIN: Present: Fowl smelling; yellowish purulent drainage from right toe. Absent: rash, itching, pallor HEMATOLOGIC/IMMUNOLOGIC: Absent: easy bleeding, easy bruising, lymphadenopathy, frequent infections ENDOCRINE: Absent: unexplained weight gain, unexplained weight loss, heat intolerance, cold intolerance NEUROLOGIC: Absent: headache, focal weakness or paresthesias, dizziness, unsteady gait, seizure, mental status changes, bladder or bowel incontinence PSYCHIATRIC: Absent: anxiety, depression, suicidal or homicidal ideation, hallucinations. PHYSICAL EXAMINATION GENERAL: Patient is sitting comfortably in bed, Awake, alert, and fully oriented , in no acute distress. HEAD: Normal with no signs of trauma. EYES: EOM intact, no pallor or icterus. EARS, NOSE, THROAT: Ears normal. Moist mucous membranes. NECK: Supple. LUNGS: B/L Breath sounds equal, clear to auscultation bilaterally. No wheezes, and no crackles. No accessory muscle use. HEART: Regular rate and rhythm, normal S1 and S2 without murmur. ABDOMEN: Soft, nontender, not distended, normoactive bowel sounds, MUSCULOSKELETAL: No CVA tenderness. UPPER EXTREMITIES: 2+ pulses, warm, well-perfused. No cyanosis. No clubbing. No peripheral edema. LEFT LOWER EXTREMITY: 2+ pulses, warm, well-perfused. No calf tenderness. No peripheral edema. RIGHT LOWER EXTREMITY: Right third toe: Fowl smelling +, 1 + DP pulse (Please refer to Dr. Riojas's note) 12/26/16 MRI of R foot - Osteomyelitis involving distal phalanx of R 3rd digit. Associated soft tissue edema is seen as well as soft tissue air/gas accumulation. ASSESSMENT/PLAN: Patient is a 66 year old Male with significant past medical history of Diabetes Mellitus and Hypertension presented to the ED with the chief complaints of right great toe was diagnosed to have osteomyelitis # Osteomyelitis of Right third digit with wet gangrene Diagnosed with MRI done on 12/26/16, requiring amputation but left AMA before the treatment, now came back for further evaluation and treatment. Previous hospitalization, was treated with IV Vanc/Zosyn On arrival, Afebrile, hemodynamically stable, Normal WBC Admitted in Med-Surg Continue IV Vancomycin 1gm daily Continue IV Zosyn 3.375 gm Daily Pending blood and urine cultures, 12/25/16 wound culture from right third toe : Staph aureus, Strep, enterococcus Dr. Olvera consult requested Dr. Paz consult requested NPO after midnight for possible amputation # Diabetes Mellitus A1c 6.8 in 2012, will repeat it in am. Hold Metformin ISS, BGM Watch for hypoglycemic symptoms # Hypertension-Stable Continue home Norvasc 10mg QD # FEN IV NS @ 83mls.hr, he is NPO Electrolytes normal, to be repeated tomorrow. NPO after midnight for possible amputation tomorrow. # Prophylaxis For DVT: Heparin SQ TID, hold 4 hours before the surgery For GI: Not indicated # Dispo: Admitted in Med/Surg. Duration of stay unknown. # Code Status: Full Code Illness, Investigation and Plan of care explained to the patient. He verbalized understanding. Case discussed with Dr. Melvin. Visit type - Emergency Visit Emergency Visit: Yes ED Registration Date: 12/29/16 Care time: The patient presented to the Emergency Department on the above date and was hospitalized for further evaluation of their emergent condition. - New Patient This patient is new to me today: Yes Date on this admission: 12/29/16 - Critical Care Critical Care patient: No
[2016-12-29] MEDS: HEPARIN NA (PORCINE) 5,000 UNITS/ML 1ML VIAL SQ SCH (22:56)
[2016-12-29] MEDS: INSULIN SLIDING SCALE (NOVOLOG) 1 VIAL SQ SCH (22:57)
[2016-12-29] MEDS: VANCOMYCIN 1,000 MG in DEXTROSE 5%-WATER - 250 ML IVPB SCH (22:58)
[2016-12-29 23:28] LABS: VENOUS PH 7.3 (7.32-7.42)
[2016-12-29 23:29] LABS: VENOUS BLOOD GAS HCO3 28.1 meq/L (19-25)
[2016-12-30 04:04] VITALS: BMI 23.6
[2016-12-30] MEDS: SODIUM CHLORIDE 1,000 ML IV SCH ×2 (04:30→17:46)
[2016-12-30] MEDS: HEPARIN NA (PORCINE) 5,000 UNITS/ML 1ML VIAL SQ SCH ×3 (06:22→22:33)
[2016-12-30] MEDS: INSULIN SLIDING SCALE (NOVOLOG) 1 VIAL SQ SCH ×4 (06:26→22:49)
[2016-12-30] MEDS ORDERED: INSULIN (NOVOLOG) ASPART 100 UNITS/ML 10ML VIAL ONE (06:51)
[2016-12-30] MEDS ORDERED: INSULIN DETEMIR 100 UNITS/ML MDV SQ ONE (06:51)
[2016-12-30] MEDS ORDERED: PT OWN MED DRAWER 7, Y5N ONE ×5 (06:52→22:48)
[2016-12-30 08:26] LABS: MCH 33.8 pg (25.7-33.7); MCHC 34.3 g/dl (32.0-35.9); MEAN CELL VOLUME 98.3 fl (80-96); MEAN PLT VOLUME 7.3 fl (7.5-11.1); PLATELET COUNT 331 K/MM3 (134-434); RDW 12.6 % (11.9-15.9); WHITE BLOOD COUNT 9.1 K/mm3 (4.0-10.0)
[2016-12-30 08:48] LABS: ANION GAP 10 (8-16); CALCIUM 8.8 mg/dL (8.5-10.1); CO2 26 mmol/L (21-32); CREATININE 0.8 mg/dL (0.7-1.3); GLUCOSE,RANDOM 167 mg/dL (74-106)
[2016-12-30] MEDS ORDERED: FLU VACCINE QUAD 60 MCG/0.5 ML (MDV 17-18) IM ONE (09:00)
[2016-12-30] MEDS ORDERED: amLODIPine BESYLATE 10 MG TABLET (FP) PO SCH (10:00)
--- NOTE | 2016-12-30 10:13 | PN ---
Progress Note (short form) - Note Progress Note: Podiatry F/U: Pleasant 66 year old IDDM M returns to hospital for readmission for R 3rd toe wet gangrene, osteomyelitis Patient was seen on , discussed with me that he was leaving the following friday against medical advice to attend his daughter's wedding. He kept the dressing C/D/I, readmitted late last night. Denies F/V/N/C/SOB/CP. Afebrile, VSS. EDUARDO: R foot: pedal pulses 1/4, TG wnl, CFT absent to 3rd digit. There is gangrenous changes to the distal aspect of third toe with probing to bone, mild superficial purulence, no soft tissue crepitus, mild fluctuance, mild periwound erythema, streaking cellulitis quite improved. Grossly edematous third toe, pedal edema improved. WBC: 9.1 Imp: 66 year old IDDM M with R 3rd toe gangrene and osteomyelitis 1. IV abx per ID 2. Betadine DSD R foot 3. NPO at midnight. Plan for R 3rd toe amputation tomorrow. 4. Please hold heparin SQ 5. Will follow Alissa Olvera DPM
--- NOTE | 2016-12-30 10:38 | PN ---
Progress Note (short form) - Note Progress Note: ID Full note dictated Selected Entries 12/30/16 07:54 Temperature 98.0 F Pulse Rate 75 Respiratory 18 Rate Blood Pressure 150/79 Microbiology 12/25/16 23:20 Toe - Right Third Gram Stain - Final 12/25/16 23:20 Toe - Right Third Wound Culture - Preliminary Staphylococcus Aureus Strep Agalactiae Group B Enterococcus Faecalis Group D Strep Or Entero Coccus Laboratory Tests 12/30/16 12/30/16 07:30 07:30 WBC 9.1 Hgb 14.2 Plt Count 331 BUN 17 D Creatinine 0.8 D Assessment Osteomyelitis Cellulitis Gangrene Plan Surgery amputation/ Unasyn/ Duration of antibiotic to be determined post op Bert JENNINGS Problem List - Problems (1) Gangrene Code(s): I96 - GANGRENE, NOT ELSEWHERE CLASSIFIED (2) Diabetes Code(s): E11.9 - TYPE 2 DIABETES MELLITUS WITHOUT COMPLICATIONS (3) Osteomyelitis Code(s): M86.9 - OSTEOMYELITIS, UNSPECIFIED
--- NOTE | 2016-12-30 11:13 | PN ---
Progress Note (short form) - Note Progress Note: Subjective: The patient was seen and examined at the bedside, he has no complaints at this time. For right 3rd toe amputation tomorrow Current Medications Generic Name Dose Route Start Last Admin Trade Name Sandoval PRN Reason Stop Dose Admin Amlodipine Besylate 10 mg 12/30/16 10:00 12/30/16 10:35 Norvasc - PO 10 mg DAILY CAITLYN Administration Heparin Sodium (Porcine) 5,000 unit 12/29/16 22:00 12/30/16 06:22 Heparin - SQ 12/30/16 23:00 Not Given TID CAITLYN Sodium Chloride 1,000 mls @ 83 mls/hr 12/30/16 01:00 12/30/16 04:30 Normal Saline - IV 83 mls/hr ASDIR CAITLYN Administration Ampicillin Sodium/Sulbactam 100 mls @ 200 mls/hr 12/30/16 10:45 Sodium 1.5 gm/ Sodium Chloride IVPB Q6H-IV CAITLYN Insulin Aspart 1 vial 12/29/16 22:00 12/30/16 06:26 Novolog Vial Sliding Scale - SQ Not Given ACHS CAITLYN Protocol Pneumococcal 13-Valent Conj Vacc 0.5 ml 12/31/16 09:00 Prevnar 13 Syringe - IM 12/31/16 09:01 .ONCE ONE Objective: Vital Signs Period Temp Pulse Resp BP Sys/Anderson Pulse Ox Last 24 Hr 98.2 F-99.3 F 82-91 19-20 136-145/70-79 95-95 Physical Exam: General: NAD, A&Ox3 Lungs: CTA bilaterally Heart: RRR, S1S2 Abd: Soft, non-tender Ext: Right foot with dressing, c/d/i. 2+ DP/PT bilaterally Neuro: CN 2-12 intact CBCD WBC 9.1 K/mm3 (4.0-10.0) 12/30/16 07:30 RBC 4.20 M/mm3 (4.00-5.60) 12/30/16 07:30 Hgb 14.2 GM/dL (11.7-16.9) 12/30/16 07:30 Hct 41.3 % (35.4-49) 12/30/16 07:30 MCV 98.3 fl (80-96) H 12/30/16 07:30 MCHC 34.3 g/dl (32.0-35.9) 12/30/16 07:30 RDW 12.6 % (11.9-15.9) 12/30/16 07:30 Plt Count 331 K/MM3 (134-434) 12/30/16 07:30 MPV 7.3 fl (7.5-11.1) L 12/30/16 07:30 CMP Sodium 140 mmol/L (136-145) 12/30/16 07:30 Potassium 3.7 mmol/L (3.5-5.1) 12/30/16 07:30 Chloride 104 mmol/L (98-107) 12/30/16 07:30 Carbon Dioxide 26 mmol/L (21-32) 12/30/16 07:30 Anion Gap 10 (8-16) 12/30/16 07:30 BUN 17 mg/dL (7-18) D 12/30/16 07:30 Creatinine 0.8 mg/dL (0.7-1.3) D 12/30/16 07:30 Creat Clearance w eGFR > 60 (>60) 12/29/16 18:30 Random Glucose 167 mg/dL (74-106) H D 12/30/16 07:30 Calcium 8.8 mg/dL (8.5-10.1) 12/30/16 07:30 Total Bilirubin 0.4 mg/dL (0.2-1.0) D 12/29/16 18:30 AST 34 U/L (15-37) D 12/29/16 18:30 ALT 27 U/L (12-78) D 12/29/16 18:30 Alkaline Phosphatase 70 U/L (45-117) 12/29/16 18:30 Total Protein 7.3 g/dl (6.4-8.2) 12/29/16 18:30 Albumin 3.1 g/dl (3.4-5.0) L 12/29/16 18:30 CARDIAC ENZYMES Creatine Kinase 80 IU/L (39-308) 12/29/16 18:30 Troponin I < 0.02 ng/ml (0.00-0.05) 12/29/16 18:30 Microbiology 12/25/16 23:20 Toe - Right Third Gram Stain - Final 12/25/16 23:20 Toe - Right Third Wound Culture - Preliminary Staphylococcus Aureus Strep Agalactiae Group B Enterococcus Faecalis Group D Strep Or Entero Coccus Assessment: This is a 66 year old male with PMHx of NIDDM, HTN, who presented to the ED with right foot swelling and drainage/foul odor from right foot 3rd digit. Plan: 1) ID: Right foot cellulitis, right foot 3rd digit gangrene and osteomyelitis - For right 3rd toe amputation tomorrow - Continue Unasyn - NPO after midnight - Appreciate podiatry consult - Appreciate ID consult 2) Endocrine: NIDDM - BGM ACHS - ISS ACHS 3) Cardiology: HTN - Continue Norvasc 4) F/E/N: - Diabetic diet/sodium controlled - NPO after midnight - Monitor electrolytes 5) Prophylaxis: - Heparin 5,000u sq tid (hold after midnight) - OOB ambulating 6) Dispo: - Requires continued inpatient care CODE STATUS: FULL CODE Visit type - Emergency Visit Emergency Visit: Yes ED Registration Date: 12/29/16 Care time: The patient presented to the Emergency Department on the above date and was hospitalized for further evaluation of their emergent condition. - New Patient This patient is new to me today: Yes Date on this admission: 12/30/16 - Critical Care Critical Care patient: No
[2016-12-30] MEDS: VANCOMYCIN 1,000 MG in DEXTROSE 5%-WATER - 250 ML IVPB SCH (11:24)
[2016-12-30] MEDS: AMPICILLIN NA/SULBACTAM NA 1.5 GM in SODIUM CHLORIDE 100 ML IVPB SCH ×3 (11:52→22:48)
--- NOTE | 2016-12-30 13:56 | EKG ---
Test Reason : Blood Pressure : / mmHG Vent. Rate : 070 BPM Atrial Rate : 070 BPM P-R Int : 144 ms QRS Dur : 112 ms QT Int : 414 ms P-R-T Axes : 030 017 060 degrees QTc Int : 447 ms NORMAL SINUS RHYTHM WITH SINUS ARRHYTHMIA NONSPECIFIC T WAVE ABNORMALITY ABNORMAL ECG WHEN COMPARED WITH ECG OF 26-DEC-2016 01:03, QRS DURATION HAS NARROWED Confirmed by JACKELIN EARLY MD ([id number]) on 12/30/2016 1:55:43 PM Referred By: Confirmed By:JACKELIN EARLY MD
[2016-12-30 15:24] LABS: URINE APPEARANCE CLEAR; URINE BILIRUBIN NEGATIVE (NEGATIVE); URINE BLOOD NEGATIVE (NEGATIVE); URINE COLOR STRAW; URINE GLUCOSE (UA) 3+ (NEGATIVE); URINE KETONE NEGATIVE (NEGATIVE); URINE LEUK ESTERASE NEGATIVE (NEGATIVE); URINE NITRITE NEGATIVE (NEGATIVE); URINE PROTEIN NEGATIVE (NEGATIVE); URINE UROBILINOGEN NEGATIVE mg/dL (0.2-1.0)
--- NOTE | 2016-12-30 18:13 | CONS ---
DATE OF CONSULTATION: DATE OF DICTATION: 12/30/2016 INFECTIOUS DISEASE FOLLOWUP HISTORY OF PRESENT ILLNESS: This is a 66-year-old diabetic male with gangrenous right third toe who I am asked to see after he was here several days ago but had to leave to attend his daughter's wedding. He is now readmitted with plan for long-term antibiotics and surgical debridement per Dr. Olvera, who saw him earlier today. According to the notes, the patient had a callus on his right third toe which became infected and over the preceding days prior to his recent admission, he was found to have gangrene of the third toe with an underlying osteomyelitis. He is a known diabetic and takes insulin at home. He has no fever or chills and is now readmitted for further workup. PHYSICAL EXAMINATION: General: He was an alert male in no acute distress. Vital signs: Temperature 96.4, blood pressure 143/80, pulse 82, respirations 20. Neck: Supple. Lungs: Clear to percussion and auscultation. Heart: S1, S2. Regular rhythm without murmur. Abdomen: Soft. Nontender. No organomegaly. Normoactive bowel sounds. Extremities: Right foot reveals wet gangrene involving the right third toe with swelling and necrosis and foul smelling drainage of the toe, surrounding erythema involving the dorsum of the foot noted. LABORATORY: The white count is 9.1, hemoglobin 14.2, platelets 331, BUN 17, creatinine 0.8. Recent wound culture with MSSA, group B Streptococcus, and enterococcus. MRI dated December 26, 2016, shows osteomyelitis distal phalanx of the third digit. ASSESSMENT: A 66-year-old male, diabetic, with gangrene right third toe. Underlying osteomyelitis with purulence and cellulitis. PLAN: Patient will undergo right third amputation for tomorrow. Will empirically treat him based on recent wound culture with ampicillin sulbactam 1.5 g every 6 hours, ESR, CRP pending. ASHISH DEWEY M.D. [id number]
[2016-12-31] MEDS: AMPICILLIN NA/SULBACTAM NA 1.5 GM in SODIUM CHLORIDE 100 ML IVPB SCH ×4 (03:00→21:09)
[2016-12-31] MEDS: SODIUM CHLORIDE 1,000 ML IV SCH ×2 (03:01→06:19)
[2016-12-31] MEDS: INSULIN SLIDING SCALE (NOVOLOG) 1 VIAL SQ SCH ×4 (06:26→21:10)
[2016-12-31] MEDS ORDERED: LIDOCAINE HCL 2% (20ML MULTI-DOSE VIAL) NR ONE (07:34)
[2016-12-31] MEDS ORDERED: MIDAZOLAM HCL 2 MG/2 ML SINGLE DOSE VIAL ONE ×2 (07:38→07:51)
--- NOTE | 2016-12-31 08:41 | OP ---
Operative Note - Note: Operative Date: 12/31/16 Pre-Operative Diagnosis: Gangrene, osteomyelitis right third toe Operation: Right third toe amputation Post-Operative Diagnosis: Same as Pre-op Surgeon: Bethel Olvera Anesthesia: Local, MAC Specimens Removed: right third toe, third metatarsal head Estimated Blood Loss (mls): 25 Operative Report Dictated: Yes
[2016-12-31] MEDS ORDERED: ONDANSETRON 4 MG/2 ML VIAL IVPUSH PRN (08:46)
[2016-12-31] MEDS ORDERED: oxyCODONE HCL 5 MG TABLET PO PRN (08:46)
[2016-12-31] MEDS ORDERED: PROMETHAZINE HCL 25 MG/1 ML VIAL IVPUSH PRN (08:46)
[2016-12-31] MEDS ORDERED: SODIUM CHLORIDE 1,000 ML IV SCH (08:54)
[2016-12-31] MEDS ORDERED: PNEUMOC 13-VAL CONJ-DIP CRM/PF 0.5 ML DISP.SYRIN IM ONE (09:00)
[2016-12-31] MEDS ORDERED: INSULIN (NOVOLOG) ASPART 100 UNITS/ML 10ML VIAL ONE ×3 (10:24→21:07)
[2016-12-31] MEDS: amLODIPine BESYLATE 10 MG TABLET (FP) PO SCH (10:29)
--- NOTE | 2016-12-31 14:57 | PN ---
Progress Note (short form) - Note Progress Note: Subjective: The patient was seen and examined at the bedside, he has no complaints at this time. Current Medications Generic Name Dose Route Start Last Admin Trade Name Sandoval PRN Reason Stop Dose Admin Amlodipine Besylate 10 mg 12/31/16 10:00 12/31/16 10:29 Norvasc - PO 10 mg DAILY CAITLYN Administration Fentanyl 25 mcg 12/31/16 08:46 Sublimaze Injection - IVPUSH 01/03/17 08:47 [id number] PRN PAIN Heparin Sodium (Porcine) 5,000 unit 12/31/16 22:00 Heparin - SQ TID CAITLYN Ampicillin Sodium/Sulbactam 100 mls @ 200 mls/hr 12/31/16 09:00 12/31/16 10:43 Sodium 1.5 gm/ Sodium Chloride IVPB 200 mls/hr Q6H-IV CAITLYN Administration Insulin Aspart 1 vial 12/31/16 11:00 12/31/16 10:27 Novolog Vial Sliding Scale - SQ 6 units ACHS CAITLYN Administration Protocol Oxycodone HCl 5 mg 12/31/16 08:43 Roxicodone - PO Q4H PRN PAIN LEVEL 1-5 Oxycodone HCl 5 mg 12/31/16 08:46 Roxicodone - PO 01/01/17 08:45 Q4H PRN MILD PAIN Objective: Vital Signs Period Temp Pulse Resp BP Sys/Anderson Pulse Ox Last 24 Hr 97.5 F-98.4 F 59-86 12-20 127-182/45-93 97-98 Physical Exam: General: NAD, A&Ox3 Lungs: CTA bilaterally Heart: RRR, S1S2 Abd: Soft, non-tender Ext: Right foot with dressing, dried blood on dressing Neuro: CN 2-12 intact CBCD WBC 9.1 K/mm3 (4.0-10.0) 12/30/16 07:30 RBC 4.20 M/mm3 (4.00-5.60) 12/30/16 07:30 Hgb 14.2 GM/dL (11.7-16.9) 12/30/16 07:30 Hct 41.3 % (35.4-49) 12/30/16 07:30 MCV 98.3 fl (80-96) H 12/30/16 07:30 MCHC 34.3 g/dl (32.0-35.9) 12/30/16 07:30 RDW 12.6 % (11.9-15.9) 12/30/16 07:30 Plt Count 331 K/MM3 (134-434) 12/30/16 07:30 MPV 7.3 fl (7.5-11.1) L 12/30/16 07:30 CMP Sodium 140 mmol/L (136-145) 12/30/16 07:30 Potassium 3.7 mmol/L (3.5-5.1) 12/30/16 07:30 Chloride 104 mmol/L (98-107) 12/30/16 07:30 Carbon Dioxide 26 mmol/L (21-32) 12/30/16 07:30 Anion Gap 10 (8-16) 12/30/16 07:30 BUN 17 mg/dL (7-18) D 12/30/16 07:30 Creatinine 0.8 mg/dL (0.7-1.3) D 12/30/16 07:30 Creat Clearance w eGFR > 60 (>60) 12/29/16 18:30 Random Glucose 167 mg/dL (74-106) H D 12/30/16 07:30 Calcium 8.8 mg/dL (8.5-10.1) 12/30/16 07:30 Total Bilirubin 0.4 mg/dL (0.2-1.0) D 12/29/16 18:30 AST 34 U/L (15-37) D 12/29/16 18:30 ALT 27 U/L (12-78) D 12/29/16 18:30 Alkaline Phosphatase 70 U/L (45-117) 12/29/16 18:30 Total Protein 7.3 g/dl (6.4-8.2) 12/29/16 18:30 Albumin 3.1 g/dl (3.4-5.0) L 12/29/16 18:30 CARDIAC ENZYMES Creatine Kinase 80 IU/L (39-308) 12/29/16 18:30 Troponin I < 0.02 ng/ml (0.00-0.05) 12/29/16 18:30 Microbiology 12/29/16 18:00 Blood - Peripheral Venous Blood Culture - Preliminary NO GROWTH OBTAINED AFTER 24 HOURS, INCUBATION TO CONTINUE FOR 4 DAYS. 12/29/16 18:30 Blood - Peripheral Venous Blood Culture - Preliminary NO GROWTH OBTAINED AFTER 24 HOURS, INCUBATION TO CONTINUE FOR 4 DAYS. Assessment: This is a 66 year old male with PMHx of NIDDM, HTN, who presented to the ED with right foot swelling and drainage/foul odor from right foot 3rd digit. Plan: 1) ID: Right foot cellulitis, right foot 3rd digit gangrene and osteomyelitis - S/p right 3rd toe amputation today - Continue Unasyn - Awaiting bone biopsy before determining outpatient abx - Appreciate podiatry consult - Appreciate ID consult 2) Endocrine: NIDDM - BGM ACHS - ISS ACHS 3) Cardiology: HTN - Continue Norvasc 4) F/E/N: - Diabetic diet/sodium controlled - Monitor electrolytes 5) Prophylaxis: - Heparin 5,000u sq tid (hold after midnight) - OOB ambulating 6) Dispo: - Requires continued inpatient care CODE STATUS: FULL CODE Visit type - Emergency Visit Emergency Visit: Yes ED Registration Date: 12/29/16 Care time: The patient presented to the Emergency Department on the above date and was hospitalized for further evaluation of their emergent condition. - New Patient This patient is new to me today: No - Critical Care Critical Care patient: No
--- NOTE | 2016-12-31 16:56 | PN ---
Progress Note, Physician History of Present Illness: Post op amputation of R 3rd toe No c/o pain No fever/ chills WBC WNL - Current Medication List Current Medications: Active Medications Amlodipine Besylate (Norvasc -) 10 mg PO DAILY [facility] Last Admin: 12/31/16 10:29 Dose: 10 mg Fentanyl (Sublimaze Injection -) 25 mcg IVPUSH [id number] PRN PRN Reason: PAIN Stop: 01/03/17 08:47 Heparin Sodium (Porcine) (Heparin -) 5,000 unit SQ TID [facility] Ampicillin Sodium/Sulbactam (Sodium 1.5 gm/ Sodium Chloride) 100 mls @ 200 mls/ hr IVPB Q6H-IV CAITLYN Last Admin: 12/31/16 15:28 Dose: 200 mls/hr Insulin Aspart (Novolog Vial Sliding Scale -) 1 vial SQ ACHS CAITLYN PRN Reason: Protocol Last Admin: 12/31/16 10:27 Dose: 6 units Oxycodone HCl (Roxicodone -) 5 mg PO Q4H PRN PRN Reason: PAIN LEVEL 1-5 Oxycodone HCl (Roxicodone -) 5 mg PO Q4H PRN PRN Reason: MILD PAIN Stop: 01/01/17 08:45 - Objective Vital Signs: Vital Signs Temperature 97.8 F 12/31/16 14:00 Pulse Rate 86 12/31/16 14:00 Respiratory Rate 20 12/31/16 14:00 Blood Pressure 156/81 12/31/16 14:00 O2 Sat by Pulse Oximetry (%) 97 12/31/16 09:00 Constitutional: Yes: No Distress Eyes: Yes: Conjunctiva Clear Cardiovascular: Yes: Regular Rate and Rhythm, S1, S2 Respiratory: Yes: CTA Bilaterally Gastrointestinal: Yes: Normal Bowel Sounds, Soft. No: Tenderness Extremities: Yes: Other (post op dressing in place) Labs: CBC, BMP 12/30/16 07:30 12/30/16 07:30 INR, PTT INR 1.09 (0.82-1.09) 12/29/16 18:30 Assessment/Plan S/P amputation gangrenous 3rd toe Cellulitis, foot Continue unasyn Await path report
--- NOTE | 2016-12-31 17:24 | OP ---
DATE OF OPERATION: 12/31/2016 PREOPERATIVE DIAGNOSIS: Right third toe gangrene with osteomyelitis. POSTOPERATIVE DIAGNOSIS: Right third toe gangrene with osteomyelitis. PROCEDURE: Right third toe amputation, right third metatarsal head resection with bone biopsy and culture. SURGEON: Bethel Olvera DPM CHIEF SCIENCE OFFICER: Dr. Muller, PGY-2 [facility] ANESTHESIA: Local with IV sedation. HEMOSTASIS: Surgical dissection. ESTIMATED BLOOD LOSS: 25 mL PATHOLOGY: Bone of right foot. COMPLICATIONS: None. DESCRIPTION OF PROCEDURE: The patient was brought to the operating room and placed on the operating table in the supine position. I elected to not use a tourniquet during the course of this procedure. Following the induction of IV sedation, local anesthesia was achieved utilizing 10 mL of 2% lidocaine plain. The right foot was then scrubbed, prepped and draped in the usual aseptic fashion. I directed my attention to the right third toe where gangrene with cellulitis and acute osteomyelitis was identified. I began by performing a 3-cm linear longitudinal incision overlying the third metatarsal and continued that incision circumferentially about the third toe. The incision was carried to bone using sharp and blunt dissection, taking care to retract vital neural and vascular structures. All bleeders were cauterized and ligated as appropriate. Next, I disarticulated the third toe at the level of the metatarsophalangeal joint. All soft tissue and ligamentous attachments were released, and the third toe was removed and sent to Pathology for analysis. Next, I performed a soft tissue culture which was sent to Microbiology for further analysis. Next, a linear capsulotomy was performed overlying the third metatarsal head. The soft tissue and ligamentous attachments were freed from the third metatarsal head. A sagittal saw was used to resect the third metatarsal head. This was sent to Pathology for further analysis. Next, a portion of the remnant metatarsal shaft was resected using a rongeur, and this was sent for bone culture. The surgical site was copiously irrigated with sterile saline. [id number] Iodoform packing was implemented into the surgical site. The incision was coapted and maintained utilizing 3-0 nylon in a simple interrupted suture fashion with the packing exiting distally. Following the conclusion of the procedure, the surgical site was covered with Xeroform, and a sterile compressive dressing was applied to the right foot, consisting of sterile gauze, Vannessa, Kerlix, and an Yves wrap. Patient tolerated the procedure and anesthesia without complications. He was transferred from the operating room to the recovery unit with vital signs stable and neurovasculature intact to the right foot. CORAL RODRIGUEZ/[id number] cc: [facility] Podiat[facility]
[2016-12-31] MEDS: HEPARIN NA (PORCINE) 5,000 UNITS/ML 1ML VIAL SQ SCH (21:10)
[2017-01-01] MEDS: AMPICILLIN NA/SULBACTAM NA 1.5 GM in SODIUM CHLORIDE 100 ML IVPB SCH ×4 (02:21→21:11)
[2017-01-01] MEDS: oxyCODONE HCL 5 MG TABLET PO PRN ×2 (02:55→23:53)
[2017-01-01] MEDS: INSULIN SLIDING SCALE (NOVOLOG) 1 VIAL SQ SCH ×4 (06:51→21:12)
[2017-01-01] MEDS: HEPARIN NA (PORCINE) 5,000 UNITS/ML 1ML VIAL SQ SCH ×3 (06:51→21:12)
[2017-01-01] MEDS ORDERED: PT OWN MED DRAWER 7, Y5N ONE ×2 (09:23→15:17)
[2017-01-01] MEDS: amLODIPine BESYLATE 10 MG TABLET (FP) PO SCH (09:38)
--- NOTE | 2017-01-01 12:12 | PN ---
Progress Note (short form) - Note Progress Note: Podiatry: Seen/evaluated at bedside, NAD. Pain controlled with PO analgesics, denies F/V/ N/C/SOB/CP. S/p R 3rd toe amputation POD #1. Afebrile, VSS. EDUARDO: R foot: bandaging C/D/I, no active bleeding, minimal strikethrough. Sutures well coapted, no dehiscence noted, packing in place at distal aspect of incision. Minimal tenderness to palpation. No purulence, no fluctuance, no periwound erythema, no ascending cellulitis, no signs of active infection. No ischemic changes exhibited to the foot. ESR: 60 OR Cx/Path: pending Imp: 66 year old DM M s/p R 3rd toe amputation for wet gangrene 1. C/w IV abx per Infectious Disease 2. DSD R foot. May keep dressing C/D/I. 3. Partial WB R heel with surgical shoe 4. F/u OR cultures/path 5. Will follow Anne-Marie Olvera DPM
--- NOTE | 2017-01-01 16:11 | PN ---
Physical Exam: SUBJECTIVE: Patient seen and examined. He feels well, denies SAVAGE, blurry vision, fever, chills. OBJECTIVE: Vital Signs Period Temp Pulse Resp BP Sys/Anderson Pulse Ox Last 24 Hr 97.9 F-98.4 F 71-85 18-20 155-176/67-97 97 PE Neuro: alert, awake, cn 2-12intact Pulm: CTAB CV: s1 s2 rrr no mrg Abd: s nt nd + bs Ext: r foot 3rd digit amputated, foot dressed in post op show Laboratory Results - last 24 hr 12/31/16 12/31/16 01/01/17 16:19 20:54 06:46 POC Glucometer 381 338 260 01/01/17 11:52 POC Glucometer 277 Active Medications Generic Name Dose Route Start Last Admin Trade Name Freq PRN Reason Stop Dose Admin Amlodipine Besylate 10 mg 12/31/16 10:00 01/01/17 09:38 Norvasc - PO 10 mg DAILY CAITLYN Administration Fentanyl 25 mcg 12/31/16 08:46 Sublimaze Injection - IVPUSH 01/03/17 08:47 [id number] PRN PAIN Heparin Sodium (Porcine) 5,000 unit 12/31/16 22:00 01/01/17 15:23 Heparin - SQ 5,000 unit TID CAITLYN Administration Ampicillin Sodium/Sulbactam 100 mls @ 200 mls/hr 12/31/16 09:00 01/01/17 15:23 Sodium 1.5 gm/ Sodium Chloride IVPB 200 mls/hr Q6H-IV CAITLYN Administration Insulin Aspart 1 vial 12/31/16 11:00 01/01/17 11:56 Novolog Vial Sliding Scale - SQ 6 units ACHS CAITLYN Administration Protocol Lisinopril 10 mg 01/01/17 16:15 Prinivil PO DAILY CAITLYN Oxycodone HCl 5 mg 12/31/16 08:43 01/01/17 02:55 Roxicodone - PO 5 mg Q4H PRN Administration PAIN LEVEL 1-5 Assessment: 66 year old male with PMHx of NIDDM, HTN, who presented to the ED with right foot swelling and drainage/foul odor from right foot 3rd digit. Plan: 1. Right foot cellulitis, right foot 3rd digit gangrene and osteomyelitis - S/p right 3rd toe amputation 12/31 - Continue Unasyn - Awaiting final bone bx 2. DM II - ISS, BGM ACHS - Hold PO antidiabetics 3. HTN - Above goal - Start lisinopril 10mg now, daily - Continue Norvasc 4. PPX: - Heparin 5000sq Visit type - Emergency Visit Emergency Visit: Yes ED Registration Date: 12/29/16 Care time: The patient presented to the Emergency Department on the above date and was hospitalized for further evaluation of their emergent condition. - New Patient This patient is new to me today: Yes Date on this admission: 01/01/17 - Critical Care Critical Care patient: No
[2017-01-01] MEDS: LISINOPRIL 10 MG TABLET (FP) PO SCH (17:54)
[2017-01-02] MEDS: AMPICILLIN NA/SULBACTAM NA 1.5 GM in SODIUM CHLORIDE 100 ML IVPB SCH ×2 (03:07→08:31)
[2017-01-02] MEDS ORDERED: INSULIN (NOVOLOG) ASPART 100 UNITS/ML 10ML VIAL ONE ×3 (06:37→17:05)
[2017-01-02] MEDS: INSULIN SLIDING SCALE (NOVOLOG) 1 VIAL SQ SCH ×4 (06:39→22:49)
[2017-01-02] MEDS: HEPARIN NA (PORCINE) 5,000 UNITS/ML 1ML VIAL SQ SCH ×3 (06:40→22:39)
[2017-01-02 08:41] LABS: ANION GAP 7 (8-16); CALCIUM 8.7 mg/dL (8.5-10.1); CO2 30 mmol/L (21-32); GLUCOSE,RANDOM 295 mg/dL (74-106)
[2017-01-02] MEDS ORDERED: PT OWN MED DRAWER 7, Y5N ONE (10:25)
[2017-01-02] MEDS: LISINOPRIL 10 MG TABLET (FP) PO SCH (10:26)
[2017-01-02] MEDS: amLODIPine BESYLATE 10 MG TABLET (FP) PO SCH (10:26)
[2017-01-02] MEDS ORDERED: LISINOPRIL 20 MG TABLET (FP) PO ONE (11:29)
[2017-01-02] MEDS ORDERED: LISINOPRIL 10 MG TABLET (FP) PO ONE (11:29)
[2017-01-02] MEDS ORDERED: PATIENT'S OWN MEDICATION (NON-FORMULARY) (Lisinopril [Prinivil -] 40 MG) PO SCH (11:30)
--- NOTE | 2017-01-02 12:17 | PN ---
Physical Exam: SUBJECTIVE: Patient seen and examined he is elevating his foot. Overnight acute pain, improved with medication. OBJECTIVE: Vital Signs Period Temp Pulse Resp BP Sys/Anderson Pulse Ox Last 24 Hr 97.5 F-98.2 F 66-79 18-20 150-163/70-85 PE Neuro: alert, awake, cn 2-12intact Pulm: CTAB CV: s1 s2 rrr no mrg Abd: s nt nd + bs Ext: r foot 3rd digit amputated, foot dressed in post op shoe Laboratory Results - last 24 hr 01/02/17 01/02/17 01/02/17 06:00 07:30 11:38 Sodium 134 L Potassium 4.2 Chloride 97 L Carbon Dioxide 30 Anion Gap 7 L BUN 19 H Creatinine 1.0 D POC Glucometer 242 304 Random Glucose 295 H D Calcium 8.7 Active Medications Generic Name Dose Route Start Last Admin Trade Name Freq PRN Reason Stop Dose Admin Amlodipine Besylate 10 mg 12/31/16 10:00 01/02/17 10:26 Norvasc - PO 10 mg DAILY CAITLYN Administration Carvedilol 25 mg 01/02/17 11:30 Coreg - PO BID CAITLYN Fentanyl 25 mcg 12/31/16 08:46 Sublimaze Injection - IVPUSH 01/03/17 08:47 [id number] PRN PAIN Heparin Sodium (Porcine) 5,000 unit 12/31/16 22:00 01/02/17 06:40 Heparin - SQ 5,000 unit TID CAITLYN Administration Ampicillin Sodium/Sulbactam 100 mls @ 200 mls/hr 12/31/16 09:00 01/02/17 08:31 Sodium 1.5 gm/ Sodium Chloride IVPB 200 mls/hr Q6H-IV CAITLYN Administration Insulin Aspart 1 vial 12/31/16 11:00 01/02/17 06:39 Novolog Vial Sliding Scale - SQ 4 units ACHS CAITLYN Administration Protocol Lisinopril 40 mg 01/03/17 10:00 Prinivil PO DAILY CAITLYN Oxycodone HCl 5 mg 12/31/16 08:43 01/01/17 23:53 Roxicodone - PO 5 mg Q4H PRN Administration PAIN LEVEL 1-5 Microbiology 12/31/16 08:16 Gram Stain - Final Tissue-Other Tissue Culture - Preliminary Pseudomonas Aeruginosa Staphylococcus Coagulase Neg Group D Strep Or Entero Coccus Anaerobic Culture - Final NO ANAEROBES WERE ISOLATED 12/31/16 08:25 Gram Stain - Final Bone Tissue Culture - Preliminary Non Lactose Fermenting Gnb Staphylococcus Coagulase Neg Group D Strep Or Entero Coccus Non Lactose Fermenting Gnb#2 Anaerobic Culture - Final NO ANAEROBES WERE ISOLATED 12/29/16 18:00 Blood Culture - Preliminary Blood - Peripheral Venous NO GROWTH OBTAINED AFTER 72 HOURS, INCUBATION TO CONTINUE FOR 2 DAYS. 12/29/16 18:30 Blood Culture - Preliminary Blood - Peripheral Venous NO GROWTH OBTAINED AFTER 72 HOURS, INCUBATION TO CONTINUE FOR 2 DAYS. 12/30/16 14:20 Urine Culture - Final Urine - Urine Clean Catch NO GROWTH OBTAINED Assessment: 66 year old male with PMHx of NIDDM, HTN, who presented to the ED with right foot swelling and drainage/foul odor from right foot 3rd digit. Plan: 1. Right foot cellulitis, right foot 3rd digit gangrene and osteomyelitis - S/p right 3rd toe amputation 12/31 - Continue Unasyn - Awaiting final bone bx - ID following 2. DM II - ISS, BGM ACHS - Hold PO antidiabetics 3. HTN - Start lisinopril 40mg - Resume Coreg 25mg BID - Hold HCTZ 25mg daily for now - Continue Norvasc 10mg daily 4. PPX: - Heparin 5000sq Visit type - Emergency Visit Emergency Visit: Yes ED Registration Date: 12/29/16 Care time: The patient presented to the Emergency Department on the above date and was hospitalized for further evaluation of their emergent condition. - New Patient This patient is new to me today: No - Critical Care Critical Care patient: No
[2017-01-02] MEDS: CARVEDILOL 25 MG TABLET (FP) PO SCH ×2 (12:23→22:39)
--- NOTE | 2017-01-02 13:33 | PN ---
Progress Note, Physician History of Present Illness: No c/o foot pain No fever/ chills Tolerating antibiotic Wound c/s mixed organisms, including Pseudomonas Path report pending - Current Medication List Current Medications: Active Medications Amlodipine Besylate (Norvasc -) 10 mg PO DAILY [facility] Last Admin: 01/02/17 10:26 Dose: 10 mg Carvedilol (Coreg -) 25 mg PO BID [facility] Last Admin: 01/02/17 12:23 Dose: 25 mg Fentanyl (Sublimaze Injection -) 25 mcg IVPUSH [id number] PRN PRN Reason: PAIN Stop: 01/03/17 08:47 Heparin Sodium (Porcine) (Heparin -) 5,000 unit SQ TID [facility] Last Admin: 01/02/17 06:40 Dose: 5,000 unit Insulin Aspart (Novolog Vial Sliding Scale -) 1 vial SQ ACHS [facility] PRN Reason: Protocol Last Admin: 01/02/17 12:21 Dose: 8 units Lisinopril (Prinivil) 40 mg PO DAILY [facility] Oxycodone HCl (Roxicodone -) 5 mg PO Q4H PRN PRN Reason: PAIN LEVEL 1-5 Last Admin: 01/01/17 23:53 Dose: 5 mg - Objective Vital Signs: Vital Signs Temperature 98.2 F 01/02/17 10:00 Pulse Rate 66 01/02/17 10:00 Respiratory Rate 18 01/02/17 10:00 Blood Pressure 157/73 01/02/17 10:00 O2 Sat by Pulse Oximetry (%) 97 01/01/17 11:03 Constitutional: Yes: No Distress Eyes: Yes: Conjunctiva Clear Cardiovascular: Yes: Regular Rate and Rhythm, S1, S2 Respiratory: Yes: CTA Bilaterally Gastrointestinal: Yes: Normal Bowel Sounds, Soft. No: Tenderness Extremities: Yes: Other (toe amputation site no drainage erythema, dorsum of foot resolved) Labs: CBC, BMP 12/30/16 07:30 01/02/17 07:30 INR, PTT INR 1.09 (0.82-1.09) 12/29/16 18:30 Assessment/Plan S/P amputation gangrenous R 3rd toe Cellulitis, foot- resolved Substitute zosyn Await path report Hopefully switch to po antibiotics if resection margins clear
[2017-01-02] MEDS ORDERED: PIPERACILLIN/TAZOBACTAM 3.375 GM VIAL IVPB ONE (14:48)
[2017-01-02] MEDS ORDERED: DEXTROSE 5%-WATER - 50 ML IVPB ONE (14:49)
[2017-01-02] MEDS: PIPERACILLIN/TAZOB 3.375 GM 3.375 GM in DEXTROSE 5%-WATER - 50 ML IVPB SCH ×2 (14:55→18:43)
--- NOTE | 2017-01-02 15:50 | PATH ---
Surgical Pathology Report Patient Name: JUANITO LEVY [facility]. Rec. #: [id number] /Age/Gender: 1950 (Age: 66) / M Account: [id number] Location: [address] [place] [address]/[facility] Taken: 12/31/2016 Received: 12/31/2016 Reported: 01/02/2017 Physicians: Bethel Olvera DPM Specimen(s) Received A: RIGHT FOOT PROXIMAL BONE B: RIGHT FOOT 3RD TOE AMPUTATION Clinical History Gangrene right third toe, DM, hypertension Final Diagnosis A. BONE, RIGHT PROXIMAL FLESH, EXCISION: UNREMARKABLE BONE. NO OSTEOMYELITIS IDENTIFIED. B. RIGHT THIRD TOE, AMPUTATION: SKIN AND SOFT TISSUE WITH GANGRENOUS NECROSIS AND ULCERATION, AND BONE WITH ACUTE OSTEOMYELITIS. BONE MARGIN IS FREE OF OSTEOMYELITIS. ULCERATION AND NECROSIS EXTEND TO SKIN AND SOFT TISSUE MARGIN OF EXCISION. Electronically Signed Bipin Goldstein M.D. Gross Description A. Received in formalin labeled "right foot proximal bone," is a 1.5 x 1.4 x 1.4 cm santiago, irregular portion of bone. The specimen displays smooth trabecular bone at one end and smooth articular cartilage at the opposing end. Business Practices Officer sections are submitted in 2 cassettes as follows: 1-margin with trabecular bone, following decalcification; 2-end with articular cartilage, following decalcification. B. Received in formalin labeled "right foot third toe amputation," is a 5.2 x 2.3 x 2.0 cm toe amputation specimen. There is a 2.5 cm in length exposed portion of bone at the proximal aspect. The bone margin displays smooth articular cartilage. The epidermal surface displays a 3.3 x 1.9 cm dove-green, gangrenous lesion extending to and involving the underlying bone as well as the skin and soft tissue margin. Business Practices Officer sections are submitted in 3 cassettes as follows: 1-skin and soft tissue margin; 2-bone margin, following decalcification; 3-lesion with underlying bone, following decalcification. 01/01/201701/01/2017
[2017-01-02] MEDS: oxyCODONE HCL 5 MG TABLET PO PRN (22:49)
[2017-01-03] MEDS: PIPERACILLIN/TAZOB 3.375 GM 3.375 GM in DEXTROSE 5%-WATER - 50 ML IVPB SCH ×2 (03:00→10:42)
[2017-01-03] MEDS ORDERED: DEXTROSE 5%-WATER - 50 ML IVPB ONE ×2 (04:07→10:21)
[2017-01-03] MEDS ORDERED: PIPERACILLIN/TAZOBACTAM 3.375 GM VIAL IVPB ONE ×2 (04:07→10:21)
[2017-01-03] MEDS: HEPARIN NA (PORCINE) 5,000 UNITS/ML 1ML VIAL SQ SCH (06:57)
[2017-01-03] MEDS: INSULIN SLIDING SCALE (NOVOLOG) 1 VIAL SQ SCH ×2 (07:06→12:20)
[2017-01-03 09:26] VITALS: BP 153/80; PULSE 71; TEMP 98.7
[2017-01-03] MEDS ORDERED: LISINOPRIL 20 MG TABLET (FP) PO SCH (10:00)
[2017-01-03] MEDS ORDERED: INSULIN (NOVOLOG) ASPART 100 UNITS/ML 10ML VIAL ONE (10:20)
[2017-01-03] MEDS ORDERED: PT OWN MED DRAWER 7, Y5N ONE (10:21)
[2017-01-03] MEDS: CARVEDILOL 25 MG TABLET (FP) PO SCH (10:43)
[2017-01-03] MEDS: amLODIPine BESYLATE 10 MG TABLET (FP) PO SCH (10:44)
--- NOTE | 2017-01-03 11:47 | DS ---
Physical Exam: SUBJECTIVE: Patient seen and examined. He feels well, eager to go home. Dressing changed today by Dr. Pierre OBJECTIVE: Vital Signs Period Temp Pulse Resp BP Sys/Anderson Pulse Ox Last 24 Hr 97.7 F-98.8 F 65-81 16-18 119-176/69-94 96 PE Neuro: alert, awake, cn 2-12intact Pulm: CTAB CV: s1 s2 rrr no mrg Abd: s nt nd + bs Ext: r foot 3rd digit amputated CDI, post op shoe placed Laboratory Results - last 24 hr 01/02/17 01/02/17 01/02/17 11:38 16:42 22:41 POC Glucometer 304 307 238 01/03/17 06:59 POC Glucometer 299 HOSPITAL COURSE: Date of Admission:12/29/16 Date of Discharge: 01/03/17 Minutes to complete discharge: 37 Discharge Summary Reason For Visit: GANGRENE Current Active Problems Cellulitis (Acute) Gangrene (Acute) Osteomyelitis (Acute) Hospital Course: Initial Hospital Course: Briefly, this 66 year old male w/ PMHx of NIDDM admitted for osteomyelitis of his R third toe with plan for amputation. Subsequent Hospital Course/Progress Note/DC summary Assessment: 66 year old male with PMHx of NIDDM, HTN, who presented to the ED with right foot swelling and drainage/foul odor from right foot 3rd digit. Plan: 1. Right foot cellulitis, right foot 3rd digit gangrene and osteomyelitis - Right 3rd toe amputation 12/31 - Completed course IV abx zosyn/unasyn - Pathology report bone cx negative for osteo - Home with levaquin 500mg po x7 days - F/u with podiatry on Friday 2. DM II - Resume home po anti diabetics - PT reluctant to start insulin 3. HTN - Lisinopril 40mg - Coreg 25mg BID - HCTZ 25mg daily - Norvasc 10mg daily Dispo: - Home with pcp and podiatry follow up - To complete above abx Condition: Stable - Instructions Diet, Activity, Other Instructions: Please return to the ED for any new, persistent, or worsening symptoms. Follow up with your PCP in 1 week Follow up with Dr. Pierre on Friday in wound care [phone] Resume home medications as directed Take antibiotics as directed and until completed Referrals: Jorge L Montes MD [Primary Care Provider] - Bethel Olvera MD [Staff Physician] - Disposition: HOME - Home Medications Comprehensive Discharge Medication List: Ambulatory Orders Cholecalciferol (Vitamin D3) [Vitamin D3] 1,000 unit PO DAILY tablet 10/07/14 Vitamin B Complex 1 each PO DAILY tablet 10/07/14 Zinc 50 mg PO DAILY tablet 10/07/14 Amlodipine Besylate 10 mg PO 01/01/17 Carvedilol [Coreg] 25 mg PO BID 01/01/17 Glimepiride [Amaryl -] 4 mg PO DAILY@0700 01/01/17 Hydrochlorothiazide [Hctz -] 25 mg PO DAILY 01/01/17 Lisinopril [Prinivil -] 40 mg PO DAILY 01/01/17 Levofloxacin [Levaquin -] 500 mg PO DAILY #7 tablet 01/03/17 This patient is new to me today: No Emergency Visit: Yes ED Registration Date: 12/29/16 Care time: The patient presented to the Emergency Department on the above date and was hospitalized for further evaluation of their emergent condition. Critical Care patient: No - Discharge Referral Referred to [facility] Yes Physician Referral: Jorge L Montes MD (Int Med)
--- NOTE | 2017-01-03 11:55 | PN ---
Progress Note (short form) - Note Progress Note: Podiatry: Seen/evaluated at bedside, NAD. Pain controlled, denies F/V/N/C/SOB/CP. Afebrile, VSS. S/p R 3rd toe amputation for gangrene, cellulitis. EDUARDO: R foot: dressing C/D/I, no active bleeding, no strikethrough. No wound dehiscence noted, no drainage, no periwound erythema, no ascending cellulitis, no signs of active infection. Minimal tenderness to palpation. OR Bone Cx: group D strep/enterococcus OR Bone Path: margins free of osteomyelitis Imp: 66 year old IDDM M s/p R 3rd toe amputation 1. Bacitracin + DSD R foot applied. 2. Partial WB R heel with surgical shoe. 3. As per Infectious Disease, discharge on PO levaquin x 7 days. Bone margins free of osteomyelitis. 4. Patient instructed to keep dressing C/D/I. 5. Glycemic control. 6. Upon discharge, will f/u with me on 01/07/17. 7. Podiatry stable for discharge. Anne-Marie Olvera DPM
--- NOTE | 2017-01-03 12:03 | PN ---
Progress Note, Physician History of Present Illness: No c/o foot pain No fever/ chills Wound c/s polymicrobial Path report shows clear bone margins - Current Medication List Current Medications: Active Medications Amlodipine Besylate (Norvasc -) 10 mg PO DAILY [facility] Last Admin: 01/03/17 10:44 Dose: 10 mg Bacitracin (Bacitracin -) 1 applic TP DAILY [facility] Carvedilol (Coreg -) 25 mg PO BID [facility] Last Admin: 01/03/17 10:43 Dose: 25 mg Heparin Sodium (Porcine) (Heparin -) 5,000 unit SQ TID [facility] Last Admin: 01/03/17 06:57 Dose: 5,000 unit Piperacillin Sod/Tazobactam (Sod 3.375 gm/ Dextrose) 50 mls @ 100 mls/hr IVPB Q8H-IV CAITLYN PRN Reason: Protocol Last Admin: 01/03/17 10:42 Dose: 100 mls/hr Insulin Aspart (Novolog Vial Sliding Scale -) 1 vial SQ ACHS [facility] PRN Reason: Protocol Last Admin: 01/03/17 07:06 Dose: 6 units Lisinopril (Prinivil) 40 mg PO DAILY [facility] Last Admin: 01/03/17 10:44 Dose: 40 mg Oxycodone HCl (Roxicodone -) 5 mg PO Q4H PRN PRN Reason: PAIN LEVEL 1-5 Last Admin: 01/02/17 22:49 Dose: 5 mg - Objective Vital Signs: Vital Signs Temperature 98.7 F 01/03/17 09:25 Pulse Rate 71 01/03/17 09:25 Respiratory Rate 16 01/03/17 09:25 Blood Pressure 153/80 01/03/17 09:25 O2 Sat by Pulse Oximetry (%) 96 01/02/17 21:00 Constitutional: Yes: No Distress Eyes: Yes: Conjunctiva Clear Cardiovascular: Yes: Regular Rate and Rhythm, S1, S2 Respiratory: Yes: CTA Bilaterally Gastrointestinal: Yes: Normal Bowel Sounds, Soft. No: Tenderness Extremities: Yes: Other (R foot with dressing intact) Labs: CBC, BMP 12/30/16 07:30 01/02/17 07:30 INR, PTT INR 1.09 (0.82-1.09) 12/29/16 18:30 Assessment/Plan S/P amputation gangrenous R 3rd toe Cellulitis, foot- resolved Substitute po levaquin 500mg daily x 7d Outpatient podiatry follow up
[2017-01-03] MEDS: BACITRACIN 15 GM TUBE TOPICAL OINTMENT TP SCH ×2 (12:24→14:04)
== END 2017-01-03 13:37 | disposition home or self-care (01) | DRG 256 ==
LOC: JER 17:45 → JERBED 18:35 → J5S 21:43
PROVIDERS: ADMIT Internal Medicine; ATTEND Nurse Practitioner Acute Care
PROC: 0Y6T0Z0 Detachment at Right 3rd Toe, Complete, Open Approach (ICD-10-PCS; principal; 2016-12-29)
DX: E11.52 Type 2 diabetes mellitus with diabetic peripheral angiopathy with gangrene (principal); M86.9 Osteomyelitis, unspecified; L03.115 Cellulitis of right lower limb; E11.69 Type 2 diabetes mellitus with other specified complication; B95.2 Enterococcus as the cause of diseases classified elsewhere; B96.5 Pseudomonas (aeruginosa) (mallei) (pseudomallei) as the cause of diseases classified elsewhere; Z79.84 Long term (current) use of oral hypoglycemic drugs; I10 Essential (primary) hypertension; Z87.891 Personal history of nicotine dependence
CPT/HCPCS: 36415; 71010-TC; 80048; 80053; 81003; 82803; 83036; 83605; 84484; 85025; 85027; 85610; 85651; 85730; 86140; 86850; 86900; 86901; 87040; 87070; 87075; 87086; 87186; 87205; 88304-TC; 88305-TC; 88311-TC; 93005; 93010; 94760; 99284-25; J1644